=== PATIENT | male | born 1950 | race Two or more races ===

== ENCOUNTER → 2016-06-16 | Outpatient (CLI) | payer OTHER ==
[2015-10-27 08:03] VITALS: BP 128/90
[~2016-06-16] MED LIST: LISI1TAB3 PO; NIFE30TA38 PO; OMEP40CA5 PO; TAMS0.4C97 PO
--- NOTE | 2016-06-16 14:48 | KCIC ---
CHEST, TWO VIEWS, 06/16/2016: History: Cough and congestion The heart size and pulmonary vascularity are normal. No pulmonary infiltrates are seen. There is no evidence of pleural fluid. Moderate spurring is present in the spine. IMPRESSION: No acute cardiopulmonary abnormality is detected. Electronically signed by: Dion Warren MD (Jun 16, 2016 14:46:19)
== END | disposition home or self-care (01) ==
LOC: KCIC 12:30
PROVIDERS: ATTEND Family Medicine
DX: R05 Cough (principal); R09.89 Other specified symptoms and signs involving the circulatory and respiratory systems
CPT/HCPCS: 71020

== ENCOUNTER 2016-06-29 09:07 | Inpatient (IN) | payer OTHER ==
[~2016-06-29] VITALS: Ht 182.9 cm; Wt 114.8 kg
[2016-06-29 07:00] VITALS: BP 127/78
--- NOTE | 2016-06-29 09:17 | PHYS DOC ---
Adult General Chief Complaint Chief Complaint: SHORTNESS OF BREATH HPI HPI Patient is a 65 year old male who presents with was of breath last 2 weeks. He states that this came on when he was fertilizing the yard 2 weeks ago. He was seen by his primary care physician and was given breathing treatments and steroids for bronchitis. He states this did not improve his symptoms either he came back to do a stress test which was inconclusive and was sent to a shipfitter apprentice and hasn't echocardiogram that's pending. He denies any orthopnea, denies any fevers, he is having a non-productive cough and states he has some chest discomfort only with coughing. He denies any abdominal pain. He denies any swelling in his legs. He denies any history of heart disease or tobacco abuse. Review of Systems Review of Systems Constitutional: Denies fever or chills [] Eyes: Denies change in visual acuity, redness, or eye pain [] HENT: Denies nasal congestion or sore throat [] Respiratory: Positive for cough and shortness of breath [] Cardiovascular: No additional information not addressed in HPI [] GI: Denies abdominal pain, nausea, vomiting, bloody stools or diarrhea [] : Denies dysuria or hematuria [] Musculoskeletal: Denies back pain or joint pain [] Integument: Denies rash or skin lesions [] Neurologic: Denies headache, focal weakness or sensory changes [] Endocrine: Denies polyuria or polydipsia [] Current Medications Current Medications Current Medications Medications (Trade) Dose Ordered Sig/Meghana Start Time Stop Time Status Last Admin Dose Admin Albuterol/ Ipratropium 3 ml 3 ml 1X ONCE 06/29/16 10:45 06/29/16 10:46 DC 06/29/16 10:29 3 ML Info (Do NOT chart on this entry -- for MONITORING) 1 each PRN DAILY PRN 06/29/16 11:45 07/01/16 11:44 Iohexol (Omnipaque 300 Mg/ml) 60 ml 1X ONCE 06/29/16 11:45 06/29/16 11:46 DC 06/29/16 11:45 60 ML Sodium Chloride (Iv Sodium Chloride 0.9% 1000ml Bag) 1,000 ml @ 1,000 mls/hr 1X ONCE 06/29/16 11:30 06/29/16 12:29 DC 06/29/16 12:15 1,000 MLS/HR Allergies Allergies Allergies Coded Allergies Type Severity Reaction Last Updated Verified No Known Drug Allergies 10/27/15 No Physical Exam Physical Exam Constitutional: Well developed, well nourished, no acute distress, non-toxic appearance. [] HENT: Normocephalic, atraumatic, bilateral external ears normal, oropharynx moist, no oral exudates, nose normal. [] Eyes: PERRLA, EOMI, conjunctiva normal, no discharge. [] Neck: Normal range of motion, no tenderness, supple, no stridor. [] Cardiovascular:Heart rate regular rhythm,tachy, no murmur [] Lungs & Thorax: Bilateral breath sounds decreased with mild expiratory wheezes Abdomen: Bowel sounds normal, soft, no tenderness, no masses, no pulsatile masses. [] Skin: Warm, dry, no erythema, no rash. [] Back: No tenderness, no CVA tenderness. [] Extremities: No tenderness, no cyanosis, no clubbing, ROM intact, no edema. [] Neurologic: Alert and oriented X 3, normal motor function, normal sensory function, no focal deficits noted. [] Psychologic: Affect normal, judgement normal, mood normal. [] Current Patient Data Vital Signs Vital Signs Date Time Temp Pulse Resp B/P Pulse Ox O2 Delivery O2 Flow Rate FiO2 06/29/16 10:29 94 Room Air 06/29/16 09:25 98.1 112 16 108/65 98.1 Lab Values Laboratory Tests Test 06/29/16 10:05 06/29/16 10:50 White Blood Count 13.4x10^3/uL (4.0-11.0) H Red Blood Count 4.88x10^6/uL (4.30-5.70) Hemoglobin 14.6g/dL (13.0-17.5) Hematocrit 42.1% (39.0-53.0) Mean Corpuscular Volume 86fL (79-100) Mean Corpuscular Hemoglobin 30pg (25-35) Mean Corpuscular Hemoglobin Concent 35g/dL (31-37) Red Cell Distribution Width 13.3% (11.5-14.5) Platelet Count 218x10^3/uL (140-400) Neutrophils (%) (Auto) 75% (31-73) H Lymphocytes (%) (Auto) 15% (24-48) L Monocytes (%) (Auto) 9% (0-9) Eosinophils (%) (Auto) 1% (0-3) Basophils (%) (Auto) 0% (0-3) Neutrophils # (Auto) 10.1x10^3uL (1.8-7.7) H Lymphocytes # (Auto) 2.0x10^3/uL (1.0-4.8) Monocytes # (Auto) 1.1x10^3/uL (0.0-1.1) Eosinophils # (Auto) 0.1x10^3/uL (0.0-0.7) Basophils # (Auto) 0.1x10^3/uL (0.0-0.2) Prothrombin Time 13.5SEC (11.7-14.0) Prothrombin Time INR 1.1 (0.8-1.1) D-Dimer (Anjali) 5.91ug/mlFEU (0.00-0.50) H Sodium Level 138mmol/L (136-145) Potassium Level 3.3mmol/L (3.5-5.1) L Chloride Level 102mmol/L (98-107) Carbon Dioxide Level 25mmol/L (21-32) Anion Gap 11 (6-14) Blood Urea Nitrogen 19mg/dL (8-26) Creatinine 1.4mg/dL (0.7-1.3) H Estimated GFR (Cockcroft-Gault) 50.5 Glucose Level 136mg/dL (70-99) H Calcium Level 8.8mg/dL (8.5-10.1) Magnesium Level 1.9mg/dL (1.8-2.4) Total Bilirubin 1.1mg/dL (0.2-1.0) H Direct Bilirubin 0.2mg/dL (0.0-0.2) Aspartate Amino Transferase (AST) 21U/L (15-37) Alanine Aminotransferase (ALT) 24U/L (16-63) Alkaline Phosphatase 74U/L (46-116) Creatine Kinase 201U/L (39-308) Creatine Kinase MB (Mass) 1.1ng/mL (0.0-3.6) Creatine Kinase MB Relative Index 0.5% (0-4) Troponin I Quantitative < 0.017ng/mL (0.000-0.055) CI-Dzu-D-Type Natriuretic Peptide 361pg/mL (0-124) H Total Protein 7.5g/dL (6.4-8.2) Albumin 3.3g/dL (3.4-5.0) L Thyroid Stimulating Hormone (TSH) 0.827uIU/mL (0.358-3.74) Urine Collection Type Void Urine Color Candy Urine Clarity Clear Urine pH 7.0 Urine Specific [place] 1.020 Urine Protein Negativemg/dL (NEG-TRACE) Urine Glucose (UA) Negativemg/dL (NEG) Urine Ketones (Stick) Negativemg/dL (NEG) Urine Blood Negative (NEG) Urine Nitrite Negative (NEG) Urine Bilirubin Negative (NEG) Urine Urobilinogen Dipstick 1.0mg/dL (0.2 mg/dL) Urine Leukocyte Esterase Trace (NEG) Urine RBC 0/HPF (0-2) Urine WBC 1-4/HPF (0-4) Urine Squamous Epithelial Cells Mod/LPF Urine Bacteria Few/HPF (0-FEW) Urine Mucus Marked/LPF Laboratory Tests 06/29/16 10:05 Laboratory Tests 06/29/16 10:05 EKG EKG EKG shows sinus tach with a rate of [address] elevations or T-wave inversions, normal axis, QTC 467 ms, as interpreted by me. Radiology/Procedures Radiology/Procedures [facility] [address] [place] [address] IMAGING REPORT Signed PATIENT: MARCELO ZARCO ACCOUNT: [id number] : 1950 LOCATION: ER AGE: 65 SEX: M EXAM STATUS: REG ER ORD. PHYSICIAN: LEONARDO PALMA MD REASON: PROCEDURE: PORTABLE CHEST 1V Portable chest, 06/29/2016: History: Cough, shortness of breath Comparison is made to a study from 06/16/2016. The heart size and pulmonary vascularity are normal. There is minimal streaky atelectasis/infiltrate laterally in the left upper chest. The right lung is clear. There is no evidence of pleural fluid. Mild spurring is present in the spine. IMPRESSION: Minimal streaky atelectasis/infiltrate in the left upper chest. DICTATED and SIGNED BY: ABBY CHOWDHURY MD DATE: 06/29/16 1017 CC: LEONARDO PALMA MD; GERSON SORIANO MD ~ Impressions: Bilateral PEs Course & Med Decision Making Course & Med Decision Making Pertinent Labs and Imaging studies reviewed. (See chart for details) HEENT angiogram confirms bilateral PEs. He was started on heparin drip. I did place a consult with Dr. Santiago with pulmonary. I also related Doppler of bilateral lower extremities as if he does have DVTs might need an IVC filter. The patient is in stable condition with stable vitals at this time other than his slight tachycardia at 109. We did leave a message with Dr. Soriano's staff air defense officer that the patient does have bilateral PEs and consulting pulmonary. Critical care time of 55 minutes of critical care time was used on this patient excluding procedures. Dragon Disclaimer Dragon Disclaimer This electronic medical record was generated, in whole or in part, using a voice recognition dictation system. Departure Departure Impression: Primary Impression: Pulmonary embolism Disposition: ADMITTED INPATIENT Admitting Physician: Gerson Soriano Condition: STABLE Referrals: GERSON SORIANO MD (PCP) LEONARDO PALMA MD Jun 29, 2016 09:17
[2016-06-29 10:16] LABS: BASO # 0.1 x10^3/uL (0.0-0.2); BASO % 0 % (0-3); EOS % 1 % (0-3); HEMATOCRIT 42.1 % (39.0-53.0); HEMOGLOBIN 14.6 g/dL (13.0-17.5); LYMPH % 15 % (24-48); MEAN CORPUSCULAR HEMOGLOBIN 30 pg (25-35); MEAN CORPUSCULAR HGB CONC 35 g/dL (31-37); MEAN CORPUSCULAR VOLUME 86 fL (79-100); MONO % 9 % (0-9); NEUT % 75 % (31-73); PLATELET COUNT 218 x10^3/uL (140-400); RED BLOOD COUNT 4.88 x10^6/uL (4.30-5.70); RED CELL DISTRIBUTION WIDTH 13.3 % (11.5-14.5); WHITE BLOOD COUNT 13.4 x10^3/uL (4.0-11.0)
--- NOTE | 2016-06-29 10:22 | RAD ---
Portable chest, 06/29/2016: History: Cough, shortness of breath Comparison is made to a study from 06/16/2016. The heart size and pulmonary vascularity are normal. There is minimal streaky atelectasis/infiltrate laterally in the left upper chest. The right lung is clear. There is no evidence of pleural fluid. Mild spurring is present in the spine. IMPRESSION: Minimal streaky atelectasis/infiltrate in the left upper chest.
--- NOTE | 2016-06-29 10:32 | EKG ---
[facility] [address] [place] [address] Test Date: 2016-06-29 Test Time: 09:31:57 Pat Name: MARCELO ZARCO Department: Room: Gender: M Parent Aide: : 1950 Requested By: LEONARDO PALMA Order Number: [id number] Reading MD: Measurements Intervals [place] Rate: 105 P: 51 RI: 154 QRS: 32 QRSD: 90 T: 34 QT: 350 QTc: 467 Interpretive Statements SINUS TACHYCARDIA QRS(T) CONTOUR ABNORMALITY CONSIDER ANTEROSEPTAL MYOCARDIAL DAMAGE CONSIDER INFERIOR MYOCARDIAL DAMAGE POSSIBLY ABNORMAL ECG RI6.01 No previous ECG available for comparison
[2016-06-29 10:33] LABS: INR 1.1 (0.8-1.1); PROTHROMBIN TIME PATIENT 13.5 SEC (11.7-14.0)
[2016-06-29 10:35] LABS: CALCIUM 8.8 mg/dL (8.5-10.1); CREATININE 1.4 mg/dL (0.7-1.3); GFR 50.5; POTASSIUM 3.3 mmol/L (3.5-5.1)
[2016-06-29 10:41] LABS: ALBUMIN 3.3 g/dL (3.4-5.0); DIRECT BILIRUBIN 0.2 mg/dL (0.0-0.2); MAGNESIUM 1.9 mg/dL (1.8-2.4); TOTAL BILIRUBIN 1.1 mg/dL (0.2-1.0); TOTAL PROTEIN 7.5 g/dL (6.4-8.2)
[2016-06-29] MEDS ORDERED: IPRATRPIUM/ALBUTEROL 0.5/2.5MG 3 ML NEBU. NEB ONE (10:45)
[2016-06-29 10:46] LABS: CKMB INDEX 0.5 % (0-4); CKMB MASS 1.1 ng/mL (0.0-3.6)
[2016-06-29] MEDS ORDERED: IV NORMAL SALINE 1000ML BAG 1,000 ML IV ONE (11:30)
[2016-06-29] MEDS ORDERED: IOHEXOL 300 MG/ML 75 ML VIAL IV ONE (11:45)
[2016-06-29] MEDS ORDERED: CONTRAST GIVEN MC PRN (11:45)
[2016-06-29 11:46] LABS: BILIRUBIN,URINE NEGATIVE (NEG); GLUCOSE,URINE NEGATIVE (NEG); NITRITE,URINE NEGATIVE (NEG); PROTEIN,URINE NEGATIVE (NEG-TRACE)
[2016-06-29 12:05] LABS: BACTERIA,URINE FEW /HPF (0-FEW); RBC,URINE 0 /HPF (0-2); SQUAMOUS EPITHELIAL CELL,UR MOD /LPF
--- NOTE | 2016-06-29 12:19 | RAD ---
CT pulmonary angiogram with contrast History: Shortness of air for 2 weeks. Comparison: None. Technique: Helical CT angiogram of the chest with attention to the pulmonary arteries was performed after the administration of intravenous contrast, 60 mL Omnipaque 300. Axial 2-D reconstructions were obtained. Coronal 3-D MIPS were also obtained. One or more of the following individualized dose reduction techniques were utilized for the study: Automated exposure control Adjustment of mA and/or kV according to patient's size Use of iterative reconstruction technique. Findings: There is adequate opacification of pulmonary arteries. There is a moderate to large burden of bilateral pulmonary embolism. Pulmonary embolism can be seen involving the most distal aspect of the left main pulmonary artery extending into the left upper and lower lobe pulmonary arterial system and subjacent segments. There is pulmonary embolism involving the distal aspect of the right main pulmonary artery extending into all 3 lobar pulmonary arteries and subjacent segments. There is no evidence of reflux of contrast into the IVC or bowing of the interventricular septum to the left. There is a small focus of irregular consolidation involving the posterior right lung base as well as of additional irregular consolidation involving the lateral left upper lobe. These are worrisome for pulmonary infarctions. No pneumothorax or pleural effusion is seen. Visualized thyroid is symmetric. Trachea and mainstem bronchi appear patent. No mediastinal lymphadenopathy is seen. Thoracic aorta is without evidence of dissection. Heart and pericardium are unremarkable. Impression: 1. Moderate to large burden of bilateral pulmonary embolism. No convincing CT evidence of right heart strain. 2. Bilateral areas of irregular consolidation, worrisome for pulmonary infarctions. 3. Results discussed with emergency department staff at 1217 hours.
[2016-06-29] MEDS ORDERED: HEPARIN for IV BOLUS 10,000 UNIT/10 ML VIAL. IV ONE (12:30)
[2016-06-29] MEDS ORDERED: HEPARIN for IV BOLUS 10,000 UNIT/10 ML VIAL. IV PRN ×2 (12:30)
[2016-06-29] MEDS ORDERED: MORPHINE SULFATE 2 MG/ML DISP.SYRIN. IV PRN (12:30)
[2016-06-29] MEDS ORDERED: ONDANSETRON PF 4 MG/2 ML VIAL. IV PRN (12:30)
[2016-06-29] MEDS: HEPARIN 25,000UTS/500ML PREMIX 500 ML IV PRN (12:52)
--- NOTE | 2016-06-29 13:53 | RAD ---
Bilateral lower extremity venous Doppler ultrasound History: Recent diagnosis of pulmonary embolism. Comparison: None. Procedure: Color Doppler, spectral Doppler, and grayscale images are obtained with and without compression in the area of the common femoral vein, superficial femoral vein - femoral vein junction, main femoral vein (superficial femoral vein) and popliteal vein. Veins of the proximal calf are also imaged. Findings: There is normal duplex flow, color flow and compressibility of all visualized vein segments. No evidence of deep venous thrombosis is present. Impression: No evidence of lower extremity deep venous thrombosis.
--- NOTE | 2016-06-29 13:57 | ACF ---
Admission Forms Criteria PULMONARY EMBOLISM Clinical Indications for Admission to Inpatient Care (Place 'X' for any and all applicable criteria): Admission is indicated by ANY ONE of the following 1,2,3,4,5 [ ]I. Onset of hypoxia [ ]II. Hemodynamic instability 5 [X]III. Massive pulmonary embolism (eg, acute embolism causing sustained hypotension, pulselessness, or bradycardia)5 [ ]IV. Need for IV narcotics (eg, to treat dyspnea) [ ]V. Current use of home oxygen therapy [ ]. Active bleeding [ ]VII. Recent surgery [ ]VIII. Active peptic ulcer disease [ ]IX. Documented extensive thrombosis (eg, clot in vena cava or above iliofemoral bifurcation) [ ]X. Embolism while on anticoagulation [ ]XI. 6 [ ]XII. Appropriate monitoring and therapy cannot be provided in home or outpatient setting. [ ]XIII. Systemic or catheter-directed thrombolysis 5,7 [ ]XIV. Catheter embolectomy and fragmentation 6 [ ]XV. Vena cava filter placement5 [ ]XVI. Severely diminished cardiopulmonary reserve (eg, cor pulmonale, pulmonary hypertension) [ ]XVII. Severe renal failure (eg, GFR less than 30 mL/min/1.73m2 (0.5 mL/sec/ 1.73m2)) [ ]XVIII.Right ventricular dysfunction (eg, by echocardiogram) 6,11 [ ]XIX. Positive cardiac biomarker (eg, troponin T or I > 0.1 ng/mL (mcg/L), highly sensitive troponin I assay greater than 0.014 ng/mL (mcg/L), BNP or NT proBNP > assay threshold)5,8,9 [ ]XX. Known clotting abn or def (eg, liver disease, antithrombin III, protein C, or protein S abnormality) [ ]XXI. History of heparin-induced thrombocytopenia [ ]XXII. Inpatient admission required rather than observation care (Also use Pulmonary Embolism: Observation Care guideline as appropriate) because of ANY ONE of the following: [ ] a) Significant autoimmune (thrombocytopenia) or coagulopathic reaction occurs in response to anticoagulation [ ] b) Respiratory symptoms (eg, tachypnea, dyspnea) that are severe or persistent [ ] c) Other condition, treatment, or monitoring requiring inpatient admission Extended stay beyond goal length of stay may be needed for 3,28 [ ]a) Hemorrhage or recent surgery [ ]b) Recurrent thromboembolism [ ]c) Persistent hypoxemia [ ]d) Heparin-induced thrombocytopenia The original [facility] content created by [facility] has been revised. The portions of the content which have been revised are identified through the use of italic text or in bold, and [facility] has neither reviewed nor approved the modified material. All other unmodified content is copyright [facility]. Please see references footnoted in the original [facility] edition 2016 Admission Criteria Met?: Yes LULA MURCIA Jun 29, 2016 13:57
[2016-06-29 14:49] VITALS: BP 127/81
--- NOTE | 2016-06-29 14:55 | PDOC ---
Provider Note Provider Note dictated Acute bilateral PE, no DVT Hemodynamically stable check echo AC ct abdomen/pelvis IVAN YEH MD Jun 29, 2016 14:55
[2016-06-29] MEDS ORDERED: METO25TA4 PO (15:21)
[2016-06-29] MEDS ORDERED: ASPI81TA2 PO (15:22)
[2016-06-29] MEDS ORDERED: MAGN400T3 PO (15:23)
[2016-06-29] MEDS ORDERED: MULT-658 PO (15:23)
[2016-06-29] MEDS ORDERED: OMEP40CA5 PO (15:24)
[2016-06-29] MEDS ORDERED: LISI1TAB5 PO (15:24)
[2016-06-29] MEDS ORDERED: DOCU100C5 PO (15:25)
[2016-06-29] MEDS ORDERED: NIFE60TA10 PO (15:25)
--- NOTE | 2016-06-29 15:46 | CONS ---
DATE OF CONSULTATION: 06/29/2016 ATTENDING PHYSICIAN: Dr. Joaquin Pardo. REASON FOR CONSULTATION: Dyspnea and acute pulmonary embolism. HISTORY OF PRESENT ILLNESS: The patient is a pleasant 65-year-old obese male who has history of arthritis and has a sedentary lifestyle due to his knee pain. He said he did receive a corticosteroid injection which did not help and then he received Monovisc shots into his knees, which made him feel better; however, in the two weeks, he started to have shortness of breath. He states that the dyspnea became progressive. He saw his primary care physician who treated him for bronchitis as he was having cough as well. His symptoms did not improve. As a result, he was sent to Dr. Hawkins, who is a safety spec and he did a stress test which was inconclusive. The patient was going to have a chemical stress test, but this morning, his shortness of breath became progressive. He was also having chest pressure. His cough has been persistent. No leg swelling. No recent trauma. No recent surgeries. No history of prior thromboembolic disease. He was seen in the Emergency Room where a CT angiogram was performed and I personally reviewed the CT chest. There are bilateral extensive pulmonary embolism involving the distal right and left main stem bronchus and going all the way to the lobar branches. There is evidence of pulmonary infarction in the left upper lobe and also minimally in the right lung as well. There is no evidence of any right heart strain. The patient also underwent venous Dopplers of the lower extremities and they were negative. He was started on heparin protocol and I have been asked to see him for further evaluation. PAST MEDICAL HISTORY: Significant for history of arthritis. History of obesity. No significant history of thromboembolic disease. PAST SURGICAL HISTORY: No recent surgery. ALLERGIES: None. CURRENT MEDICATIONS: Reviewed as listed in the MRAD including heparin and warfarin. REVIEW OF SYSTEMS: Twelve-point system obtained. Pertinent positives discussed in history of present illness, otherwise noncontributory. All systems that were negative were reviewed as well. FAMILY HISTORY: Noncontributory for any thromboembolic disease. PHYSICAL EXAMINATION: VITAL SIGNS: Blood pressure has been in the one-teens to 130s. Pulse ox is 92% on room air. He is afebrile. His pulse is 100. HEENT: Sclerae nonicteric. NECK: Supple. LUNGS: With clear breath sounds. CARDIOVASCULAR: Regular rate and rhythm. ABDOMEN: Soft, obese. EXTREMITIES: With no pitting edema, no calf tenderness. LABORATORY DATA: Reviewed. White cell count 13.4, hemoglobin 14.6 and platelets are 218. BUN is 19, creatinine 1.4. Albumin 3.3. IMPRESSION: 1. Acute bilateral pulmonary embolism involving the distal main pulmonary trunk and also the lobar branches. The etiology and risk factors include underlying obesity and also immobility due to bilateral knee arthritis. He does not have any family history of thromboembolic disease and also does not have any known malignancies. His colonoscopy within the past 5 years was negative. He does have a recent 10-pound weight loss. At this point, I would also rule out any occult malignancy by doing a CT abdomen and pelvis. 2. No hemodynamic instability. CT chest without any RV strain. 3. No significant history of tobacco use. 4. Evidence of pulmonary infarction by CT chest. 5. Acute viral bronchitis. RECOMMENDATIONS: 1. I will continue with present heparin protocol and warfarin has been initiated. 2. His will check with the insurance company to see if Eliquis or Xarelto will be approved. 3. Obtain echocardiogram to assess for pulmonary artery pressures. 4. We will need a minimum of 3 months of anticoagulation. 5. We will also do hypercoagulable workup. 6. We will do CT abdomen and pelvis to rule out any occult GI malignancy. 7. Add steroid nebulizer for improving his cough and to reduce airway inflammation. 8. Discussed with the patient's . Discussed with ER physician. IVAN YEH MD DR: AVANI/leah JOB#: [id number] / [id number]
[2016-06-29] MEDS ORDERED: WARFARIN 7.5 MG TABLET. PO ONE (16:00)
--- NOTE | 2016-06-29 16:34 | RAD ---
CT abdomen and pelvis without contrast History: Evaluate for occult malignancy, pulmonary embolism. Comparison: None. Technique: Helical CT of the abdomen and pelvis was performed without intravenous or oral contrast. Axial, sagittal, and coronal reconstructions were obtained. One or more of the following individualized dose reduction techniques were utilized for the study: Automated exposure control Adjustment of mA and/or kV according to patient's size Use of iterative reconstruction technique. Findings: Evaluation of the solid organs is limited by lack of intravenous contrast. Evaluation of enteric structures may be limited by lack of oral contrast. There is excreted intravenous contrast within the renal collecting system and urinary bladder from recent CT angiogram the chest. Mild fatty liver disease is seen. Spleen, pancreas, gallbladder, and bilateral adrenal glands are unremarkable. There is no evidence of bowel obstruction. No free air or free fluid is identified in the abdomen or pelvis. Appendix is absent. Urinary bladder is unremarkable. Bilateral renal cysts are seen with largest involving the inferior pole of the left kidney measuring 6.1 cm. Prostate is moderately enlarged. No abdominal or pelvic lymphadenopathy is seen. No suspicious osseous lesions are seen. Impression: 1. Limited examination secondary to lack of oral and intravenous contrast. 2. No acute abnormality identified in the abdomen or pelvis. No site of primary or metastatic disease identified.
--- NOTE | 2016-06-29 18:26 | PDOC ---
Provider Note Provider Note dictated. will use GERSON Farnsworth MD Jun 29, 2016 18:26
[2016-06-29] MEDS ORDERED: HYDROCODONE/APAP 5/325MG TABLET. PO PRN (18:30)
[2016-06-29 19:00] VITALS: BP 127/78
[2016-06-29] MEDS: TAMSULOSIN 0.4 MG CAP.ER.24H. PO SCH (19:00)
--- NOTE | 2016-06-29 22:33 | HP ---
ADMIT DATE: 06/29/2016 CHIEF COMPLAINT: Shortness of breath. HISTORY OF PRESENT ILLNESS: A 65-year-old white male who over the last 2-1/2 weeks has had increasing shortness breath and some chest discomfort mostly exertional but not really painful. He had an exercise stress test, which was within normal limits, although submaximal, has seen Dr. Mckeon, and a Lexiscan was scheduled and an echo, but he has not done that yet. He became more short of breath. On the day of admission, he came to the ER where a D-dimer was high. Chest x-ray was clear. CT scan showed bilateral pulmonary emboli without right ventricular strain. He was placed on heparin and has had some dry cough. It has been a little better at this time. He recalls no swelling in his legs. No recent car travel or plane travel, fever, chills, hemoptysis or other complaints. MEDICATIONS: Listed per the chart for hypertension. SOCIAL HISTORY: Nonsmoker, nondrinker, he is employed. He is physically active. He is . FAMILY HISTORY: Unremarkable. No hypercoagulable disorders. REVIEW OF SYSTEMS: No other complaints. He has never had any kind of blood clots in the past. OBJECTIVE: ENT: All within normal limits. NECK: No masses, nodes, or bruits. LUNGS: Clear with decreased breath sounds. CARDIOVASCULAR: Regular rate, rate is 100. No murmur or rub is heard. ABDOMEN: Benign, soft and nontender. EXTREMITIES: No active joint or skin lesions. Distal pulses good. No edema. NEUROLOGIC: Physiologic. ASSESSMENT: Bilateral pulmonary emboli. Etiology unclear at this time. No history of hypercoagulable disorder. PLAN: IV heparin for now. We will use Xarelto, insurance covered. GERSON SORIANO MD DR: REFUGIO/leah JOB#: [id number] / [id number]
[2016-06-29 23:00] VITALS: BP 125/85
[2016-06-30 03:00] VITALS: BP 125/85
[2016-06-30] MEDS: HEPARIN 25,000UTS/500ML PREMIX 500 ML IV PRN (03:05)
[2016-06-30 03:32] LABS: CALCIUM 8.5 mg/dL (8.5-10.1); GFR 74.5; POTASSIUM 3.2 mmol/L (3.5-5.1)
[2016-06-30 03:48] LABS: BASO # 0.1 x10^3/uL (0.0-0.2); BASO % 1 % (0-3); EOS % 1 % (0-3); HEMATOCRIT 39.6 % (39.0-53.0); HEMOGLOBIN 13.5 g/dL (13.0-17.5); LYMPH # 2.1 x10^3/uL (1.0-4.8); LYMPH % 24 % (24-48); MEAN CORPUSCULAR HEMOGLOBIN 30 pg (25-35); MEAN CORPUSCULAR HGB CONC 34 g/dL (31-37); MEAN CORPUSCULAR VOLUME 88 fL (79-100); MONO % 8 % (0-9); NEUT % 66 % (31-73); PLATELET COUNT 192 x10^3/uL (140-400); WHITE BLOOD COUNT 8.8 x10^3/uL (4.0-11.0)
[2016-06-30 03:59] LABS: INR 1.2 (0.8-1.1); PROTHROMBIN TIME PATIENT 14.6 SEC (11.7-14.0)
[2016-06-30 07:12] VITALS: BP 103/66
[2016-06-30] MEDS ORDERED: PANTOPRAZOLE 40 MG TABLET.DR. PO SCH ×2 (07:30→11:30)
[2016-06-30] MEDS: TAMSULOSIN 0.4 MG CAP.ER.24H. PO SCH (08:27)
[2016-06-30] MEDS ORDERED: POTASSIUM CHLORIDE 20 MEQ TABLET.ER. PO ONE (08:30)
[2016-06-30] MEDS ORDERED: RIVAROXABAN 15 MG TABLET. PO SCH ×2 (08:30→17:00)
--- NOTE | 2016-06-30 08:36 | PDOC ---
Provider Note Provider Note [id number] GERSON SORIANO MD Jun 30, 2016 08:36
--- NOTE | 2016-06-30 08:38 | DISCH ---
DISCHARGE INSTRUCTIONS Condition on Discharge Condition on Discharge: Stable Activity After Discharge Activity Instructions for Disc: No restrictions Diet after Discharge Diet after Discharge: Low Sodium 4 gm Follow-Up Follow up with: GERSON Alvarez MD Jun 30, 2016 08:38
[2016-06-30] MEDS ORDERED: NIFEDIPINE ER 30 MG TAB.ER.24H PO SCH (09:00)
[2016-06-30] MEDS ORDERED: DOCUSATE SODIUM 100 MG CAPSULE. PO SCH (09:00)
[2016-06-30] MEDS ORDERED: HYDROCHLOROTHIAZIDE 12.5 MG CAPSULE. PO SCH (09:00)
[2016-06-30] MEDS ORDERED: LISINOPRIL 20 MG TABLET PO SCH (09:00)
--- NOTE | 2016-06-30 09:32 | DS ---
DATE OF DISCHARGE: 06/30/2016 HOSPITAL SUMMARY: A 65-year-old white male who came in with increasing shortness of breath over the last 2 weeks, nonproductive cough and some dyspnea with exertion. CBC showed an initial mildly elevated white cell count that came down to normal. Chemistry profile showed a potassium of 3.2, otherwise unremarkable with normal CPK, troponin, BNP and TSH. The Anti-Xa levels while on heparin were therapeutic. Urinalysis was clear. Chest x-ray was clear with CTA of the chest showing [id number] burden of bilateral pulmonary emboli with no sign of heart strain and some mild evidence of pulmonary infarction. Ultrasound of the both lower extremities showed no evidence of DVT and the noncontrast CT scan of the abdomen and pelvis showed bilateral renal cysts, but no pathology burden or abnormalities. He was treated with IV heparin and then switched to oral Xarelto and was seen by consultation with Dr. Santiago. Echocardiogram has been ordered, but the results are pending at this time. He has less dyspnea and is more comfortable at this point, and will be switched to Xarelto and followed as an outpatient. FINAL DIAGNOSES: 1. Bilateral pulmonary emboli. 2. Hypokalemia secondary to diuretic use. OPERATIONS, PROCEDURES, COMPLICATIONS: None. CONSULTATIONS: Dr. Santiago. DISPOSITION: Hypercoagulability labs are pending at this time. Xarelto 15 mg twice a day for 3 weeks, then 20 mg daily after that for 3-6 months. Continue all home blood pressure meds same, dietary potassium supplementation. Office followup with Dr. Santiago in 1-[address] Pardo in 1 month and he will use hydrocodone needed for cough. Activity as tolerated. Low-sodium diet. GERSON PARDO MD DR: REFUGIO/leah JOB#: [id number] / [id number]
--- NOTE | 2016-06-30 09:55 | PDOC ---
PULMONARY PROGRESS NOTES Subjective FEELS BETTER STILL HAS DRY COUGH Vitals Vital Signs Date Time Temp Pulse Resp B/P Pulse Ox O2 Delivery O2 Flow Rate FiO2 06/30/16 08:28 98 103/66 06/30/16 07:12 98.2 20 96 Room Air 98.2 General: Alert, No acute distress Lungs: Clear Cardiovascular: S1 Abdomen: Soft Neuro Exam: Alert Extremities: No Edema Skin: Warm Labs Laboratory Tests Test 06/29/16 10:05 06/29/16 10:50 06/29/16 19:30 06/30/16 03:00 White Blood Count 13.4x10^3/uL (4.0-11.0) 8.8x10^3/uL (4.0-11.0) Red Blood Count 4.88x10^6/uL (4.30-5.70) 4.50x10^6/uL (4.30-5.70) Hemoglobin 14.6g/dL (13.0-17.5) 13.5g/dL (13.0-17.5) Hematocrit 42.1% (39.0-53.0) 39.6% (39.0-53.0) Mean Corpuscular Volume 86fL (79-100) 88fL (79-100) Mean Corpuscular Hemoglobin 30pg (25-35) 30pg (25-35) Mean Corpuscular Hemoglobin Concent 35g/dL (31-37) 34g/dL (31-37) Red Cell Distribution Width 13.3% (11.5-14.5) 13.0% (11.5-14.5) Platelet Count 218x10^3/uL (140-400) 192x10^3/uL (140-400) Neutrophils (%) (Auto) 75% (31-73) 66% (31-73) Lymphocytes (%) (Auto) 15% (24-48) 24% (24-48) Monocytes (%) (Auto) 9% (0-9) 8% (0-9) Eosinophils (%) (Auto) 1% (0-3) 1% (0-3) Basophils (%) (Auto) 0% (0-3) 1% (0-3) Neutrophils # (Auto) 10.1x10^3uL (1.8-7.7) 5.8x10^3uL (1.8-7.7) Lymphocytes # (Auto) 2.0x10^3/uL (1.0-4.8) 2.1x10^3/uL (1.0-4.8) Monocytes # (Auto) 1.1x10^3/uL (0.0-1.1) 0.7x10^3/uL (0.0-1.1) Eosinophils # (Auto) 0.1x10^3/uL (0.0-0.7) 0.1x10^3/uL (0.0-0.7) Basophils # (Auto) 0.1x10^3/uL (0.0-0.2) 0.1x10^3/uL (0.0-0.2) Prothrombin Time 13.5SEC (11.7-14.0) 14.6SEC (11.7-14.0) Prothromb Time International Ratio 1.1 (0.8-1.1) 1.2 (0.8-1.1) D-Dimer (Anjali) 5.91ug/mlFEU (0.00-0.50) Sodium Level 138mmol/L (136-145) 139mmol/L (136-145) Potassium Level 3.3mmol/L (3.5-5.1) 3.2mmol/L (3.5-5.1) Chloride Level 102mmol/L (98-107) 105mmol/L (98-107) Carbon Dioxide Level 25mmol/L (21-32) 27mmol/L (21-32) Anion Gap 11 (6-14) 7 (6-14) Blood Urea Nitrogen 19mg/dL (8-26) 14mg/dL (8-26) Creatinine 1.4mg/dL (0.7-1.3) 1.0mg/dL (0.7-1.3) Estimated GFR (Cockcroft-Gault) 50.5 74.5 Glucose Level 136mg/dL (70-99) 122mg/dL (70-99) Calcium Level 8.8mg/dL (8.5-10.1) 8.5mg/dL (8.5-10.1) Magnesium Level 1.9mg/dL (1.8-2.4) Total Bilirubin 1.1mg/dL (0.2-1.0) Direct Bilirubin 0.2mg/dL (0.0-0.2) Aspartate Amino Transf (AST/SGOT) 21U/L (15-37) Alanine Aminotransferase (ALT/SGPT) 24U/L (16-63) Alkaline Phosphatase 74U/L (46-116) Creatine Kinase 201U/L (39-308) Creatine Kinase MB (Mass) 1.1ng/mL (0.0-3.6) Creatine Kinase MB Relative Index 0.5% (0-4) Troponin I Quantitative < 0.017ng/mL (0.000-0.055) PW-Scv-V-Type Natriuretic Peptide 361pg/mL (0-124) Total Protein 7.5g/dL (6.4-8.2) Albumin 3.3g/dL (3.4-5.0) Thyroid Stimulating Hormone (TSH) 0.827uIU/mL (0.358-3.74) Urine Collection Type Void Urine Color Candy Urine Clarity Clear Urine pH 7.0 Urine Specific [place] 1.020 Urine Protein Negativemg/dL (NEG-TRACE) Urine Glucose (UA) Negativemg/dL (NEG) Urine Ketones (Stick) Negativemg/dL (NEG) Urine Blood Negative (NEG) Urine Nitrite Negative (NEG) Urine Bilirubin Negative (NEG) Urine Urobilinogen Dipstick 1.0mg/dL (0.2 mg/dL) Urine Leukocyte Esterase Trace (NEG) Urine RBC 0/HPF (0-2) Urine WBC 1-4/HPF (0-4) Urine Squamous Epithelial Cells Mod/LPF Urine Bacteria Few/HPF (0-FEW) Urine Mucus Marked/LPF Heparin Anti-Xa Act, Unfractionated 0.71IU/mL (0.30-0.70) 0.52IU/mL (0.30-0.70) Laboratory Tests Test 06/29/16 10:05 06/29/16 10:50 06/29/16 19:30 06/30/16 03:00 White Blood Count 13.4x10^3/uL (4.0-11.0) 8.8x10^3/uL (4.0-11.0) Red Blood Count 4.88x10^6/uL (4.30-5.70) 4.50x10^6/uL (4.30-5.70) Hemoglobin 14.6g/dL (13.0-17.5) 13.5g/dL (13.0-17.5) Hematocrit 42.1% (39.0-53.0) 39.6% (39.0-53.0) Mean Corpuscular Volume 86fL (79-100) 88fL (79-100) Mean Corpuscular Hemoglobin 30pg (25-35) 30pg (25-35) Mean Corpuscular Hemoglobin Concent 35g/dL (31-37) 34g/dL (31-37) Red Cell Distribution Width 13.3% (11.5-14.5) 13.0% (11.5-14.5) Platelet Count 218x10^3/uL (140-400) 192x10^3/uL (140-400) Neutrophils (%) (Auto) 75% (31-73) 66% (31-73) Lymphocytes (%) (Auto) 15% (24-48) 24% (24-48) Monocytes (%) (Auto) 9% (0-9) 8% (0-9) Eosinophils (%) (Auto) 1% (0-3) 1% (0-3) Basophils (%) (Auto) 0% (0-3) 1% (0-3) Neutrophils # (Auto) 10.1x10^3uL (1.8-7.7) 5.8x10^3uL (1.8-7.7) Lymphocytes # (Auto) 2.0x10^3/uL (1.0-4.8) 2.1x10^3/uL (1.0-4.8) Monocytes # (Auto) 1.1x10^3/uL (0.0-1.1) 0.7x10^3/uL (0.0-1.1) Eosinophils # (Auto) 0.1x10^3/uL (0.0-0.7) 0.1x10^3/uL (0.0-0.7) Basophils # (Auto) 0.1x10^3/uL (0.0-0.2) 0.1x10^3/uL (0.0-0.2) Prothrombin Time 13.5SEC (11.7-14.0) 14.6SEC (11.7-14.0) Prothromb Time International Ratio 1.1 (0.8-1.1) 1.2 (0.8-1.1) D-Dimer (Anjali) 5.91ug/mlFEU (0.00-0.50) Sodium Level 138mmol/L (136-145) 139mmol/L (136-145) Potassium Level 3.3mmol/L (3.5-5.1) 3.2mmol/L (3.5-5.1) Chloride Level 102mmol/L (98-107) 105mmol/L (98-107) Carbon Dioxide Level 25mmol/L (21-32) 27mmol/L (21-32) Anion Gap 11 (6-14) 7 (6-14) Blood Urea Nitrogen 19mg/dL (8-26) 14mg/dL (8-26) Creatinine 1.4mg/dL (0.7-1.3) 1.0mg/dL (0.7-1.3) Estimated GFR (Cockcroft-Gault) 50.5 74.5 Glucose Level 136mg/dL (70-99) 122mg/dL (70-99) Calcium Level 8.8mg/dL (8.5-10.1) 8.5mg/dL (8.5-10.1) Magnesium Level 1.9mg/dL (1.8-2.4) Total Bilirubin 1.1mg/dL (0.2-1.0) Direct Bilirubin 0.2mg/dL (0.0-0.2) Aspartate Amino Transf (AST/SGOT) 21U/L (15-37) Alanine Aminotransferase (ALT/SGPT) 24U/L (16-63) Alkaline Phosphatase 74U/L (46-116) Creatine Kinase 201U/L (39-308) Creatine Kinase MB (Mass) 1.1ng/mL (0.0-3.6) Creatine Kinase MB Relative Index 0.5% (0-4) Troponin I Quantitative < 0.017ng/mL (0.000-0.055) XH-Sxq-X-Type Natriuretic Peptide 361pg/mL (0-124) Total Protein 7.5g/dL (6.4-8.2) Albumin 3.3g/dL (3.4-5.0) Thyroid Stimulating Hormone (TSH) 0.827uIU/mL (0.358-3.74) Urine Collection Type Void Urine Color Candy Urine Clarity Clear Urine pH 7.0 Urine Specific [place] 1.020 Urine Protein Negativemg/dL (NEG-TRACE) Urine Glucose (UA) Negativemg/dL (NEG) Urine Ketones (Stick) Negativemg/dL (NEG) Urine Blood Negative (NEG) Urine Nitrite Negative (NEG) Urine Bilirubin Negative (NEG) Urine Urobilinogen Dipstick 1.0mg/dL (0.2 mg/dL) Urine Leukocyte Esterase Trace (NEG) Urine RBC 0/HPF (0-2) Urine WBC 1-4/HPF (0-4) Urine Squamous Epithelial Cells Mod/LPF Urine Bacteria Few/HPF (0-FEW) Urine Mucus Marked/LPF Heparin Anti-Xa Act, Unfractionated 0.71IU/mL (0.30-0.70) 0.52IU/mL (0.30-0.70) Medications Active Scripts Medications Dose Route/Sig Days Date Category Docusate Sodium 100 Mg Capsule 1 Cap PO DAILY 06/29/16 Reported Nifedipine Er (Nifedipine) 60 Mg Tablet.er 1 Tab PO DAILY 06/29/16 Reported Lisinopril-Hctz 20-12.5 Mg Tab (Lisinopril/Hydrochlorothiazide) 1 Each Tablet 1 Tab PO DAILY 06/29/16 Reported Omeprazole 40 Mg Capsule.dr 40 Mg PO BID 06/29/16 Reported Centrum Silver Tablet (Multivits-Min/Fa/Lycopene/Lut) 1 Each Tablet 1 Each PO 06/29/16 Reported Magnesium Oxide 400 Mg Tablet 1 Tab PO DAILY 06/29/16 Reported Aspirin 81 Mg Tab.chew 1 Tab PO DAILY 06/29/16 Reported Metoprolol Tartrate 25 Mg Tablet 1 Tab PO BID 06/29/16 Reported Flomax (Tamsulosin Hcl) 0.4 Mg Cap.er.24h 1 Cap PO DAILY 10/27/15 Reported Impression . 1. Acute bilateral pulmonary embolism involving the distal main pulmonary trunk and also the lobar branches. The etiology and risk factors include underlying obesity and also immobility due to bilateral knee arthritis. He does not have any family history of thromboembolic disease and also does not have any known malignancies. His colonoscopy within the past 5 years was negative. He does have a recent 10-pound weight loss. No occult malignancy by CT abdomen and pelvis. 2. No hemodynamic instability. CT chest without any RV strain. 3. No significant history of tobacco use. 4. Evidence of pulmonary infarction by CT chest. 5. Acute viral bronchitis. 6. Highly suspected NICOLETTE(witness apneas by spouse) Plan . 1. d/c heparin. Place on Xarelto 2. f/u ct chest /PE protocol a sop IN 4-6 WEEKS 3. Obtain echocardiogram to assess for pulmonary artery pressures. 4. We will need a minimum of 3 months of anticoagulation. 5. We will also do hypercoagulable workup. 6. Negative CT abdomen and pelvis for any occult GI malignancy. 7. Add steroid inhaler flovent for cough 8. Sleep study as OP 8. Discussed with the patient's . ok to d/c home. F/u with me on august 16 at 11.30 am with CTA chest and Sleep study prior to visit IVAN YEH MD Jun 30, 2016 09:55
[2016-06-30 10:51] VITALS: BP 112/77
[2016-06-30 11:24] LABS: HOMOCYSTINE LEVEL 9.3 umol/L (0.0-15.0)
[2016-06-30] MEDS ORDERED: HYDR-971 PO (11:58)
[2016-06-30] MEDS ORDERED: RIVA15TA PO (11:59)
[2016-06-30] MEDS ORDERED: RIVA20TA2 PO (11:59)
--- NOTE | 2016-06-30 20:52 | CARD ---
APPROVED REPORT EXAM: Two-dimensional and M-mode echocardiogram with Doppler and color Doppler. Other Information Quality : Good INDICATION Pulmonary Embolism 2D DIMENSIONS RVDd2.5 (2.9-3.5cm)Left Atrium(2D)3.2 (1.6-4.0cm) IVSd1.1 (0.7-1.1cm)Aortic Root(2D)3.7 (2.0-3.7cm) LVDd4.2 (3.9-5.9cm)LVOT Diameter2.2 (1.8-2.4cm) PWd1.0 (0.7-1.1cm)LVDs2.5 (2.5-4.0cm) FS (%) 30.0 %SV57.0 ml LVEF(%)60.0 (>50%) Aortic Valve AoV Peak Tonny.112.4cm/sAoV VTI16.7cm AO Peak GR.5.1mmHgLVOT Peak Tonny.92.1cm/s LVOT VTI 13.55cmAO Mean GR.3mmHg LEON (VMAX)3.08oc5LAQ (VTI)2.96cm2 Mitral Valve MV E Sktfxjvz51.7cm/sMV DECEL [id number] MV A Ydywiroz34.5cm/sMV [id number] E/A Ratio0.9MVA (PHT)2.92cm2 TDI E/Lateral E'4.6E/Medial E'7.8 Tricuspid Valve TR P. Ihldauxq143ot/sRAP [id number] TR Peak Gr.17mxTpVIDQ88rkHp Pulmonary Vein S1 Wyrffpch55.6cm/sD2 Koetuedx96.7cm/s LEFT VENTRICLE The left ventricle is normal size. There is normal left ventricular wall thickness. Left ventricle sy stolic function is low normal. The Ejection Fraction is 50-55%. There is normal LV segmental wall mot ion. . RIGHT VENTRICLE The right ventricle is mild to moderately dilated. Systolic function is mildly reduced. ATRIA The left atrium size is normal. The right atrium size is normal. The interatrial septum is intact wit h no evidence for an atrial septal defect or patent foramen ovale as noted on 2-D or Doppler imaging. AORTIC VALVE The aortic valve is calcified but opens well. Doppler and Color Flow revealed trace to mild aortic re gurgitation. There is no significant aortic valvular stenosis. MITRAL VALVE The mitral valve is normal in structure and function. There is no evidence of mitral valve prolapse. There is no mitral valve stenosis. Doppler and Color Flow revealed no mitral valve regurgitation note d. TRICUSPID VALVE The tricuspid valve is normal in structure and function. Doppler and Color Flow revealed trace tricus pid regurgitation. There is moderate pulmonary hypertension. The PA pressure was estimated at 50 mmHg . There is no tricuspid valve stenosis. PULMONIC VALVE The pulmonary valve is normal in structure and function. Doppler and Color Flow revealed mild pulmoni c valvular regurgitation. There is no pulmonic valvular stenosis. GREAT VESSELS The aortic root is normal in size. The ascending aorta is not well seen. The IVC is normal in size an d collapses <50% with inspiration. PERICARDIAL EFFUSION There is no evidence of significant pericardial effusion. Critical Notification Critical Value: No <Conclusion> The left ventricle is normal size. There is normal left ventricular wall thickness. Left ventricle systolic function is low normal. The Ejection Fraction is 50-55%. The diastolic function is normal TThe left atrium is of a normal size There is no mitral valve stenosis or regurgitation There is no aortic valvular stenosis and a trace aortic regurgitation Doppler and Color Flow revealed trace tricuspid regurgitation. There is moderate pulmonary hypertension. The PA pressure was estimated at 50 mmHg. Doppler and Color Flow revealed mild pulmonic valvular regurgitation.
== END 2016-06-30 14:27 | disposition home or self-care (01) | DRG 176 ==
LOC: ER 09:07 → 6 SOUTH 12:10
PROVIDERS: ADMIT Family Medicine; ATTEND Family Medicine
DX: I26.99 Other pulmonary embolism without acute cor pulmonale (principal); T50.2X5A Adverse effect of carbonic-anhydrase inhibitors, benzothiadiazides and other diuretics, initial encounter; E66.9 Obesity, unspecified; M19.90 Unspecified osteoarthritis, unspecified site; E87.6 Hypokalemia; J20.8 Acute bronchitis due to other specified organisms; Z68.34 Body mass index [BMI] 34.0-34.9, adult
CPT/HCPCS: 36415; 71010; 71275; 74176; 80048; 80076; 81001; 82553; 83090; 83735; 83880; 84443; 84484; 85027; 85379; 85520; 85610; 86147; 87086; 93005; 93306; 93970; 94250; 94640; 96374; G0379; J7030; J7620; Q9967; 99291-25

== ENCOUNTER → 2016-08-02 | Outpatient (CLI) | payer OTHER ==
[~2016-08-02] MED LIST changes: +ASPI81TA2 PO; +DOCU100C5 PO; +HYDR-971 PO; +LISI1TAB5 PO; +MAGN400T3 PO; +METO25TA4 PO; +MULT-658 PO; +NIFE60TA10 PO; +RIVA15TA PO; +RIVA20TA2 PO
--- NOTE | 2016-08-03 13:40 | SLEEP ---
DATE OF STUDY: 08/02/2016 ATTENDING PHYSICIAN: Dr. Joaquin Pardo. The patient is a 65-year-old who weighs 258 pounds with a BMI of 35. The patient's Felton score was 5. Sleep study was performed at [facility]. This was a split night study. During the night study, the patient spent 421 minutes in bed and slept for 334 minutes with a sleep efficiency of 79%. Sleep latency was 31 minutes with a REM latency of 125 minutes. Overall, sleep architecture showed increased stage I and stage II sleep, normal slow wave, and normal REM sleep. During the initial diagnostic portion of the study, the patient slept for 147 minutes. During this time, there were 36 obstructive apneas, 75 mixed apneas, no central apneas, and 18 hypopneas. The patient's apnea hypopnea index was 53 per hour, supine index 34 per hour, and REM index of 71 per hour. Review of nocturnal oximetry study during the diagnostic portion revealed a mean oxygen saturation of 93% with the lowest of 79%. A 46% of time oxygen saturation remained between 80% and 89%. EKG monitoring revealed normal sinus rhythm. No sustained arrhythmias were observed. Average heart rate was 81 beats per minute. PLMS were seen at index of 9 per hour and none caused EEG arousals. The patient met the criteria for CPAP initiation. It was started at 5 cm of water and titrated up to 18 cm of water. However, due to persistent respiratory events, the patient was switched to BiPAP starting at 20/12. At this pressure, the patient had 45 minutes of sleep. Supine as well as REM sleep was observed. AHI was reduced to only 4 per hour. Oxygen saturations did stay above 88%, most of the time with few desaturations in the low 80s. I would recommend repeating a nocturnal oximetry study as an outpatient at the final pressure. The patient used a large size full-face mask. IMPRESSION: 1. Severe sleep apnea-hypopnea syndrome with an apnea-hypopnea index of 53 per hour. 2. Nocturnal hypoxia secondary to obstructive sleep apnea, significantly improved with BiPAP. 3. Mild periodic limb movements during sleep without any significant EEG arousals. This does not need to be treated. RECOMMENDATIONS: 1. BiPAP at 20/12 completely eliminated the patient's sleep apnea and should be used on a nightly basis. 2. I would recommend repeating a nocturnal oximetry study as an outpatient at the final pressure to assess the need for supplemental oxygen. 3. Follow up in 4-6 weeks to assess compliance with BiPAP and to document clinical improvement. 4. Weight loss is strongly advised. 5. Avoid [employer] depressants. 6. Caution regarding driving until symptoms of sleep apnea resolve with the use of BiPAP. IVAN YEH MD DR: AVANI/leah JOB#: [id number] / [id number] Dr. Joaquin Holly
== END | disposition home or self-care (01) ==
LOC: RT 18:27
PROVIDERS: ATTEND Internal Medicine Critical Care Medicine
DX: G47.33 Obstructive sleep apnea (adult) (pediatric) (principal)
CPT/HCPCS: 95810

== ENCOUNTER 2016-08-11 22:13 | Emergency (ER) | payer OTHER ==
[~2016-08-11 22:13] MED LIST changes: -FAMO-63 PO; -IOHEXOL 300 MG/ML 75 ML VIAL IV ONE; -PRED50TA PO
[2016-08-11] MEDS ORDERED: IV NORMAL SALINE 1000ML BAG 1,000 ML IV ONE (22:45)
[2016-08-11] MEDS ORDERED: methylPREDNISolone SOD SUCC PF 125 MG/2 ML VIAL. IV ONE (22:45)
[2016-08-11] MEDS ORDERED: FAMOTIDINE 20 MG/2 ML VIAL IVP ONE (22:45)
--- NOTE | 2016-08-11 22:48 | PHYS DOC ---
Past Medical History Past Medical History: Arthritis, GERD, Hypertension, Migraines Past Surgical History: Appendectomy, Other Additional Past Surgical Histo: TURP Alcohol Use: None Drug Use: None Adult General Chief Complaint Chief Complaint: ALLERGIC REACTION HPI HPI Patient is a 65 year old male with history of acid reflex, hypertension, who presents with a rash that begun at 7:30 PM. Patient states he had a CT with IV contrast done earlier today, he states he has had CT with IV contrast before with no issues. He states he also had cherries this evening. Patient denies any difficulty breathing or swallowing. Review of Systems Review of Systems Constitutional: Denies fever or chills [] Eyes: Denies change in visual acuity, redness, or eye pain [] HENT: Denies nasal congestion or sore throat [] Respiratory: Denies cough or shortness of breath [] Cardiovascular: No additional information not addressed in HPI [] GI: Denies abdominal pain, nausea, vomiting, bloody stools or diarrhea [] : Denies dysuria or hematuria [] Musculoskeletal: Denies back pain or joint pain [] Integument: rash Neurologic: Denies headache, focal weakness or sensory changes [] Endocrine: Denies polyuria or polydipsia [] Current Medications Current Medications Current Medications Medications (Trade) Dose Ordered Sig/Meghana Start Time Stop Time Status Last Admin Dose Admin Famotidine (Pepcid) 20 mg 1X ONCE 08/11/16 22:45 08/11/16 22:46 DC 08/11/16 22:42 20 MG Methylprednisolone Sodium Succinate (SOLU-Medrol 125MG VIAL) 125 mg 1X ONCE 08/11/16 22:45 08/11/16 22:46 DC 08/11/16 22:41 125 MG Sodium Chloride 1,000 ml @ 1,000 mls/hr 1X ONCE 08/11/16 22:45 08/11/16 23:44 DC 08/11/16 22:42 1,000 MLS/HR Allergies Allergies Allergies Coded Allergies Type Severity Reaction Last Updated Verified Iodinated Contrast Media - Oral and Allergy Severe SEVERE BRIGHT RED RASH 08/11 Yes Physical Exam Physical Exam Constitutional: Well developed, well nourished, no acute distress, non-toxic appearance. [] HENT: Normocephalic, atraumatic, bilateral external ears normal, oropharynx moist, no oral exudates, nose normal. [] Eyes: PERRLA, EOMI, conjunctiva normal, no discharge. [] Neck: Normal range of motion, no tenderness, supple, no stridor. [] Cardiovascular:Heart rate regular rhythm, no murmur [] Lungs & Thorax: Bilateral breath sounds clear to auscultation [] Abdomen: Bowel sounds normal, soft, no tenderness, no masses, no pulsatile masses. [] Skin: Patient's upper tarso has erythema, small amount of erythematous papular rash on bilateral upper extremities. Back: No tenderness, no CVA tenderness. [] Extremities: No tenderness, no cyanosis, no clubbing, ROM intact, no edema. [] Neurologic: Alert and oriented X 3, normal motor function, normal sensory function, no focal deficits noted. [] Psychologic: Affect normal, judgement normal, mood normal. [] Current Patient Data Vital Signs Vital Signs Date Time Temp Pulse Resp B/P (MAP) Pulse Ox O2 Delivery O2 Flow Rate FiO2 08/11/16 22:22 98.0 106 22 97 Room Air 98.0 Lab Values Laboratory Tests Test 08/11/16 22:35 White Blood Count 8.0 x10^3/uL (4.0-11.0) Red Blood Count 5.47 x10^6/uL (4.30-5.70) Hemoglobin 16.3 g/dL (13.0-17.5) Hematocrit 47.6 % (39.0-53.0) Mean Corpuscular Volume 87 fL (79-100) Mean Corpuscular Hemoglobin 30 pg (25-35) Mean Corpuscular Hemoglobin Concent 34 g/dL (31-37) Red Cell Distribution Width 13.5 % (11.5-14.5) Platelet Count 236 x10^3/uL (140-400) Neutrophils (%) (Auto) 86 % (31-73) H Lymphocytes (%) (Auto) 11 % (24-48) L Monocytes (%) (Auto) 3 % (0-9) Eosinophils (%) (Auto) 1 % (0-3) Basophils (%) (Auto) 0 % (0-3) Neutrophils # (Auto) 6.8 x10^3uL (1.8-7.7) Lymphocytes # (Auto) 0.9 x10^3/uL (1.0-4.8) L Monocytes # (Auto) 0.2 x10^3/uL (0.0-1.1) Eosinophils # (Auto) 0.0 x10^3/uL (0.0-0.7) Basophils # (Auto) 0.0 x10^3/uL (0.0-0.2) Segmented Neutrophils % 81 % (35-66) H Band Neutrophils % 4 % (0-9) Lymphocytes % 11 % (24-48) L Monocytes % 3 % (0-10) Eosinophils % 1 % (0-5) Platelet Estimate Adequate (ADEQUATE) Sodium Level 142 mmol/L (136-145) Potassium Level 3.5 mmol/L (3.5-5.1) Chloride Level 104 mmol/L (98-107) Carbon Dioxide Level 31 mmol/L (21-32) Anion Gap 7 (6-14) Blood Urea Nitrogen 16 mg/dL (8-26) Creatinine 1.2 mg/dL (0.7-1.3) Estimated GFR (Cockcroft-Gault) 60.4 Glucose Level 131 mg/dL (70-99) H Calcium Level 8.9 mg/dL (8.5-10.1) Laboratory Tests 08/11/16 22:35 Laboratory Tests 08/11/16 22:35 EKG EKG [] Radiology/Procedures Radiology/Procedures [] Course & Med Decision Making Course & Med Decision Making Pertinent Labs and Imaging studies reviewed. (See chart for details) This is a 65-year-old male patient who presents to the ED with a possible allergic reaction. He had CT with IV contrast earlier today with no issues. This is not the first time for him to have CT with IV contrast he also had cherries this evening. He developed a rash around 7:30 PM. He took 50 mg of Benadryl prior to coming to the ED. We gave him Solu-Medrol and Pepcid in the ED. We also gave him a liter of fluid. Labs are negative for any acute findings. He was discharged with Benadryl Pepcid and prednisone. He was instructed to contact his doctors on Sunday and let them know he had a reaction possibly from the IV contrast. Dragon Disclaimer Dragon Disclaimer This electronic medical record was generated, in whole or in part, using a voice recognition dictation system. Departure Departure Impression: Primary Impression: Allergic reaction Disposition: HOME, SELF-CARE Condition: STABLE Referrals: GERSON SORIANO MD (PCP) Follow-up with your own doctor next week Patient Instructions: Drug Allergy Additional Instructions: You were seen for an allergic reaction. Please take prednisone as prescribed. Take Pepcid daily until the rash is gone. Take Benadryl every 4 hours until the rash clears up. Follow-up with your own doctor next week. Scripts Famotidine (PEPCID) 20 Mg Tablet 20 MG PO DAILY for 5 Days, #5 TAB Prov: JESSICA RODRIGUEZ APRN 08/11/16 Prednisone (PREDNISONE) 50 Mg Tablet 1 TAB PO DAILY, #5 TAB Prov: JESSICA RODRIGUEZ APRN 08/11/16 Problem Qualifiers Primary Impression: Allergic reaction Encounter type: initial encounter Qualified Codes: T78.40XA - Allergy, unspecified, initial encounter JESSICA RODRIGUEZ APRN August 11, 2016 22:48
[2016-08-11 22:49] LABS: BASO % 0 % (0-3); EOS % 1 % (0-3); HEMATOCRIT 47.6 % (39.0-53.0); HEMOGLOBIN 16.3 g/dL (13.0-17.5); LYMPH # 0.9 x10^3/uL (1.0-4.8); LYMPH % 11 % (24-48); MEAN CORPUSCULAR HEMOGLOBIN 30 pg (25-35); MEAN CORPUSCULAR HGB CONC 34 g/dL (31-37); MEAN CORPUSCULAR VOLUME 87 fL (79-100); MONO % 3 % (0-9); NEUT % 86 % (31-73); PLATELET COUNT 236 x10^3/uL (140-400); RED BLOOD COUNT 5.47 x10^6/uL (4.30-5.70); RED CELL DISTRIBUTION WIDTH 13.5 % (11.5-14.5)
[2016-08-11 22:58] LABS: CALCIUM 8.9 mg/dL (8.5-10.1); CREATININE 1.2 mg/dL (0.7-1.3); GFR 60.4; POTASSIUM 3.5 mmol/L (3.5-5.1)
[2016-08-11 23:11] LABS: % EOS 1 % (0-5); PLT ESTIMATE ADEQUATE (ADEQUATE)
[2016-08-11] MEDS ORDERED: FAMO-63 PO (23:45)
[2016-08-11] MEDS ORDERED: PRED50TA PO (23:45)
[2016-08-12] VITALS: BP 120/64
== END 2016-08-12 00:10 | disposition home or self-care (01) ==
LOC: ER 22:13
DX: T78.40XA Allergy, unspecified, initial encounter (principal); M19.90 Unspecified osteoarthritis, unspecified site; K21.9 Gastro-esophageal reflux disease without esophagitis; I10 Essential (primary) hypertension; Z91.041 Radiographic dye allergy status; X58.XXXA Exposure to other specified factors, initial encounter
CPT/HCPCS: 36415; 80048; 85007; 85027; 96361; 96374; 96375; 99284; J2930; J7030; S0028

== ENCOUNTER → 2016-08-11 | Outpatient (CLI) | payer OTHER ==
[~2016-08-11] MED LIST changes: +FAMO-63 PO; +IOHEXOL 300 MG/ML 75 ML VIAL IV ONE; +PRED50TA PO
--- NOTE | 2016-08-11 12:16 | RAD ---
Examination: CT angiogram of the chest History: History of pulmonary embolism Comparison: 06/29/2016 Technique: Axial CT angiographic images were performed with IV contrast. Coronal and sagittal 3-D MIP reformats are performed PQRS Compliance Statement: One or more of the following individualized dose reduction techniques were utilized for this examination: 1. Automated exposure control 2. Adjustment of the mA and/or kV according to patient size 3. Use of iterative reconstruction technique Findings: There is no evidence of filling defect identified in the main pulmonary arterial trunk and right and left main pulmonary arteries. The visualized lobar, segmental branches of the pulmonary arteries demonstrate no evidence of filling defects. Compared to prior exam there is significant improvement with complete resolution of the pulmonary emboli. The heart is grossly appears unremarkable. The caliber of the aorta grossly appears unremarkable. Small hiatal hernia. No radiological significant mediastinal lymphadenopathy is identified. Small focus of airspace opacity identified in the right lung base probably old infarct has decreased in size compared to prior exam. The previously visualized airspace opacities identified in the left upper lobe and right middle lobe of the lung have resolved. No evidence of pleural effusion or pneumothorax. There is mild decreased attenuation noted throughout the liver likely hepatic steatosis. The visualized adrenal glands grossly appears unremarkable. Mild degenerative changes thoracic spine. Impression: 1. Complete resolution of the pulmonary emboli. No evidence of pulmonary emboli. 2. Small focus of airspace opacity identified in the right lung base probably old infarct has decreased in size compared to prior exam. The previously visualized airspace opacities identified in the left upper lobe and right middle lobe of the lung have resolved.
== END | disposition home or self-care (01) ==
LOC: CT 13:07
PROVIDERS: ATTEND Internal Medicine Critical Care Medicine
DX: I26.99 Other pulmonary embolism without acute cor pulmonale (principal)
CPT/HCPCS: 71275; Q9967

== ENCOUNTER 2016-10-24 11:09 | Emergency (ER) | payer OTHER ==
[~2016-10-24] VITALS: Ht 182.9 cm; Wt 121.6 kg
[~2016-10-24 11:09] MED LIST changes: +ASPI-630 PO; -ASPI81TA2 PO; +DOCU100C28 PO; -DOCU100C5 PO; +FAMO-63 PO; +PRED50TA PO
[2016-10-24 11:41] LABS: BASO # 0.1 x10^3/uL (0.0-0.2); BASO % 1 % (0-3); EOS % 1 % (0-3); HEMATOCRIT 42.2 % (39.0-53.0); HEMOGLOBIN 14.7 g/dL (13.0-17.5); LYMPH # 2.1 x10^3/uL (1.0-4.8); LYMPH % 36 % (24-48); MEAN CORPUSCULAR HEMOGLOBIN 30 pg (25-35); MEAN CORPUSCULAR HGB CONC 35 g/dL (31-37); MEAN CORPUSCULAR VOLUME 86 fL (79-100); MONO % 8 % (0-9); NEUT % 54 % (31-73); PLATELET COUNT 204 x10^3/uL (140-400); RED BLOOD COUNT 4.94 x10^6/uL (4.30-5.70); RED CELL DISTRIBUTION WIDTH 13.9 % (11.5-14.5)
--- NOTE | 2016-10-24 11:57 | PHYS DOC ---
Past Medical History Past Medical History: Arthritis, GERD, Hypertension, Migraines Additional Past Medical Histor: PE, xiao's esophagus Past Surgical History: Appendectomy, Other Additional Past Surgical Histo: TURP Alcohol Use: Rarely Drug Use: None Adult General Chief Complaint Chief Complaint: SHORTNESS OF BREATH HPI HPI Patient is a 65 year old male presents to the emergency department stating that he had been on Xarelto and was just taken off of it for the last 9 days. He was on Xarelto for a PE. Patient states that he was out walking his dog today when he developed shortness of air difficulty breathing. Patient states that he also felt a pain in the left chest into his back area. Patient continues to state that his brother has recently been diagnosed with DVTs in bilateral legs. Patient also states that he has had bilateral lower leg swelling. Patient states that he has had no fevers no chills no nausea no vomiting. Patient denies any cough. Review of Systems Review of Systems Constitutional: Denies fever or chills [] Eyes: Denies change in visual acuity, redness, or eye pain [] HENT: Denies nasal congestion or sore throat [] Respiratory: Denies cough complaint of shortness of breath [] Cardiovascular: No additional information not addressed in HPI [] GI: Denies abdominal pain, nausea, vomiting, bloody stools or diarrhea [] : Denies dysuria or hematuria [] Musculoskeletal: Denies back pain or joint pain [] Integument: Denies rash or skin lesions [] Neurologic: Denies headache, focal weakness or sensory changes [] Endocrine: Denies polyuria or polydipsia [] Current Medications Current Medications Current Medications Medications (Trade) Dose Ordered Sig/Meghana Start Time Stop Time Status Last Admin Dose Admin Diphenhydramine HCl (Benadryl) 50 mg 1X ONCE 10/24/16 12:30 10/24/16 12:31 DC 10/24/16 12:42 50 MG Famotidine (Pepcid) 40 mg 1X ONCE 10/24/16 12:30 10/24/16 12:31 DC 10/24/16 12:45 40 MG Info (Do NOT chart on this entry -- for MONITORING) 1 each PRN DAILY PRN 10/24/16 13:00 10/26/16 12:59 Iohexol (Omnipaque 300 Mg/ml) 75 ml 1X ONCE 10/24/16 12:30 10/24/16 12:31 DC Iohexol (Omnipaque 350 Mg/ml) 100 ml 1X ONCE 10/24/16 13:00 10/24/16 13:01 DC 10/24/16 13:01 100 ML Methylprednisolone Sodium Succinate (SOLU-Medrol 125MG VIAL) 125 mg 1X ONCE 10/24/16 12:30 10/24/16 12:31 DC 10/24/16 12:50 125 MG Potassium Chloride (Klor-Con) 40 meq 1X ONCE 10/24/16 12:15 10/24/16 12:16 DC 10/24/16 12:49 40 MEQ Allergies Allergies Allergies Coded Allergies Type Severity Reaction Last Updated Verified Iodinated Contrast Media - Oral and Allergy Severe SEVERE BRIGHT RED RASH 08/11 Yes Physical Exam Physical Exam Constitutional: Well developed, well nourished, no acute distress, non-toxic appearance. [] HENT: Normocephalic, atraumatic, bilateral external ears normal, oropharynx moist, no oral exudates, nose normal. [] Eyes: PERRLA, EOMI, conjunctiva normal, no discharge. [] Neck: Normal range of motion, no tenderness, supple, no stridor. [] Cardiovascular:Heart rate regular rhythm, no murmur [] Lungs & Thorax: Bilateral breath sounds clear to auscultation [] Abdomen: Bowel sounds hypoactive soft, no tenderness, no masses, no pulsatile masses. [] Skin: Warm, dry, no erythema, no rash. [] Back: No tenderness] Extremities: No tenderness, no cyanosis, no clubbing, ROM intact, patient with bilateral lower leg swelling. Peripheral pulses 2+ cap refill brisk less than 2 seconds. Neurologic: Alert and oriented X 3, normal motor function, normal sensory function, no focal deficits noted. [] Psychologic: Affect normal, judgement normal, mood normal. [] Current Patient Data Vital Signs Vital Signs Date Time Temp Pulse Resp B/P (MAP) Pulse Ox O2 Delivery O2 Flow Rate FiO2 10/24/16 13:43 64 135/79 (97) 93 Room Air 10/24/16 12:18 18 10/24/16 11:20 97.6 97.6 Lab Values Laboratory Tests Test 10/24/16 11:30 White Blood Count 6.0 x10^3/uL (4.0-11.0) Red Blood Count 4.94 x10^6/uL (4.30-5.70) Hemoglobin 14.7 g/dL (13.0-17.5) Hematocrit 42.2 % (39.0-53.0) Mean Corpuscular Volume 86 fL (79-100) Mean Corpuscular Hemoglobin 30 pg (25-35) Mean Corpuscular Hemoglobin Concent 35 g/dL (31-37) Red Cell Distribution Width 13.9 % (11.5-14.5) Platelet Count 204 x10^3/uL (140-400) Neutrophils (%) (Auto) 54 % (31-73) Lymphocytes (%) (Auto) 36 % (24-48) Monocytes (%) (Auto) 8 % (0-9) Eosinophils (%) (Auto) 1 % (0-3) Basophils (%) (Auto) 1 % (0-3) Neutrophils # (Auto) 3.2 x10^3uL (1.8-7.7) Lymphocytes # (Auto) 2.1 x10^3/uL (1.0-4.8) Monocytes # (Auto) 0.5 x10^3/uL (0.0-1.1) Eosinophils # (Auto) 0.1 x10^3/uL (0.0-0.7) Basophils # (Auto) 0.1 x10^3/uL (0.0-0.2) D-Dimer (Anjali) 0.66 ug/mlFEU (0.00-0.50) H Sodium Level 141 mmol/L (136-145) Potassium Level 3.2 mmol/L (3.5-5.1) L Chloride Level 103 mmol/L (98-107) Carbon Dioxide Level 29 mmol/L (21-32) Anion Gap 9 (6-14) Blood Urea Nitrogen 17 mg/dL (8-26) Creatinine 1.1 mg/dL (0.7-1.3) Estimated GFR (Cockcroft-Gault) 66.8 BUN/Creatinine Ratio 15 (6-20) Glucose Level 102 mg/dL (70-99) H Calcium Level 9.3 mg/dL (8.5-10.1) Total Bilirubin 0.7 mg/dL (0.2-1.0) Aspartate Amino Transferase (AST) 24 U/L (15-37) Alanine Aminotransferase (ALT) 24 U/L (16-63) Alkaline Phosphatase 82 U/L (46-116) Troponin I Quantitative < 0.017 ng/mL (0.000-0.055) GL-Wkv-M-Type Natriuretic Peptide 34 pg/mL (0-124) Total Protein 7.9 g/dL (6.4-8.2) Albumin 4.1 g/dL (3.4-5.0) Albumin/Globulin Ratio 1.1 (1.0-1.7) Laboratory Tests 10/24/16 11:30 Laboratory Tests 10/24/16 11:30 EKG EKG EKG completed at 1123 with a heart rate of 78 sinus rhythm noted normal EKG noted no STEMI per Dr. Stahl[] Radiology/Procedures Radiology/Procedures [][facility] [address] [place] [address] IMAGING REPORT Signed PATIENT: MARCELO ZARCO ACCOUNT: [id number] : 1950 LOCATION: ER AGE: 65 SEX: M EXAM STATUS: REG ER ORD. PHYSICIAN: ALEKSANDAR MORRISSEY APRN REASON: SOA left chest pain PROCEDURE: PORTABLE CHEST 1V Portable chest, 10/24/2016: History: Shortness of breath, chest pain Comparison is made to a study from 06/30/2016. The heart size and pulmonary vascularity are normal. The lungs are clear. There is no evidence of pleural fluid. IMPRESSION: No acute cardiopulmonary abnormality is detected. DICTATED and SIGNED BY: ABBY CHOWDHURY MD DATE: 10/24/16 1155 CC: ALEKSANDAR MORRISSEY APRN; GERSON SORIANO MD; NON,STAFF ~ Course & Med Decision Making Course & Med Decision Making Pertinent Labs and Imaging studies reviewed. (See chart for details) Spoke with Dr. Soriano in regards to the patient's CT scan being negative and slightly elevated d-dimer 0.[address]. Spoke with him in regards to labs being normal. Patient having slight shortness of air although breath sounds are clear there is no wheezing. No pneumonia noted per chest x- ray or per CT scan. He feels the patient is capable of going home if he feels comfortable. Spoke with patient who feels comfortable going home at this time. Patient was provided with discharge instructions signs and symptoms to return back to the emergency department. He was also informed that he can follow-up with Dr. Soriano later in the week if he feels the need. Patient agrees with discharge instructions, treatment regimens and follow-up recommendations. Dragon Disclaimer Dragon Disclaimer This electronic medical record was generated, in whole or in part, using a voice recognition dictation system. Departure Departure Impression: Primary Impression: SOB (shortness of breath) Disposition: HOME, SELF-CARE Condition: STABLE Referrals: GERSON SORIANO MD (PCP) Patient Instructions: Shortness of Breath, Dway-me-Yjko Additional Instructions: Your CT scan was negative for any pulmonary emboli. Your lab work was negative although the potassium was slightly low at 3.2 provided with potassium supplement here in the emergency department. Refrain from taking potassium tonight as you were provided with a supplement here in the emergency department. Activity as tolerated. Tylenol for pain or discomfort. Follow-up with your primary care physician next 3-5 days. Return back to emergency prior signs symptoms of become worse. ALEKSANDAR MORRISSEY CORPORATE ASSOCIATE Oct 24, 2016 11:57
[2016-10-24 12:02] LABS: CALCIUM 9.3 mg/dL (8.5-10.1); CREATININE 1.1 mg/dL (0.7-1.3); GFR 66.8; POTASSIUM 3.2 mmol/L (3.5-5.1)
[2016-10-24 12:08] LABS: ALBUMIN 4.1 g/dL (3.4-5.0); ALBUMIN/GLOBULIN RATIO 1.1 (1.0-1.7); TOTAL BILIRUBIN 0.7 mg/dL (0.2-1.0); TOTAL PROTEIN 7.9 g/dL (6.4-8.2)
[2016-10-24] MEDS ORDERED: POTASSIUM CHLORIDE 20 MEQ TABLET.ER. PO ONE (12:15)
[2016-10-24] MEDS ORDERED: methylPREDNISolone SOD SUCC PF 125 MG/2 ML VIAL. IV ONE (12:30)
[2016-10-24] MEDS ORDERED: FAMOTIDINE 20 MG/2 ML VIAL IVP ONE (12:30)
[2016-10-24] MEDS ORDERED: diphenhydrAMINE 50 MG/ML VIAL IVP ONE (12:30)
[2016-10-24] MEDS ORDERED: IOHEXOL 300 MG/ML 75 ML VIAL IV ONE (12:30)
--- NOTE | 2016-10-24 12:44 | EKG ---
[facility] [address] [place] [address] Test Date: 2016-10-24 Test Time: 11:23:54 Pat Name: MARCELO ZARCO Department: Room: Gender: M Professional Nurse: : 1950 Requested By: ALEKSANDAR MORRISSEY Order Number: [id number] Reading MD: Fran Duque Measurements Intervals [place] Rate: 78 P: 56 CA: 178 QRS: 25 QRSD: 92 T: 18 QT: 368 QTc: 423 Interpretive Statements SINUS RHYTHM NORMAL ECG RI6.01 Compared to ECG 06/29/2016 09:31:57 Sinus tachycardia no longer present Electronically Signed On 10-24-2016 17:19:58 CDT by Fran Duque
[2016-10-24] MEDS ORDERED: IOHEXOL 350 MG/ML 100 ML VIAL. IV ONE (13:00)
[2016-10-24] MEDS ORDERED: CONTRAST GIVEN MC PRN (13:00)
--- NOTE | 2016-10-24 13:39 | RAD ---
CTA of the chest with contrast, 10/24/2016: History: Elevated d-dimer, shortness of breath, previous pulmonary emboli Multidetector CT imaging was performed following an IV bolus injection of iodinated contrast material. Multiplanar reconstructions were produced including coronal MIP images. Comparison is made to a study from 08/11/2016. The central pulmonary arteries are well opacified and no filling defects are seen to suggest pulmonary emboli. No mediastinal or hilar adenopathy is seen. There appears to be a small hiatal hernia. An opacity previously seen in the right lung base posteriorly has regressed with only mild residual linear densities compatible with scarring. No new pulmonary infiltrate is seen. There is no evidence of pleural fluid. IMPRESSION: 1. No CT evidence of central pulmonary emboli. 2. 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 PQRS Compliance Statement: One or more of the following individualized dose reduction techniques were utilized for this examination: 1. Automated exposure control 2. Adjustment of the mA and/or kV according to patient size 3. Use of iterative reconstruction technique
[2016-10-24 14:18] VITALS: BP 117/75
== END 2016-10-24 14:57 | disposition home or self-care (01) ==
LOC: ER 11:09
DX: R06.02 Shortness of breath (principal); R07.89 Other chest pain; R22.43 Localized swelling, mass and lump, lower limb, bilateral; I10 Essential (primary) hypertension; K21.9 Gastro-esophageal reflux disease without esophagitis; Z86.711 Personal history of pulmonary embolism; G43.909 Migraine, unspecified, not intractable, without status migrainosus; M19.90 Unspecified osteoarthritis, unspecified site; Z90.49 Acquired absence of other specified parts of digestive tract; Z91.041 Radiographic dye allergy status
CPT/HCPCS: 36415; 71010; 71275; 80053; 83880; 84484; 85027; 85379; 93005; 96374; 96375; 99285; J1200; J2930; Q9967; S0028

== ENCOUNTER 2018-05-27 19:32 | Inpatient (IN) | payer OTHER ==
[~2018-05-27] VITALS: Ht 182.9 cm; Wt 106.1 kg
[~2018-05-27 19:32] MED LIST changes: +AMLO5TAB10 PO; +HYDR-3164 PO; -HYDR-971 PO; -NIFE60TA10 PO; +NIFE60TA14 PO
[2018-05-27] MEDS ORDERED: IV NORMAL SALINE 1000ML BAG 1,000 ML IV SCH (19:51)
[2018-05-27] MEDS ORDERED: MORPHINE SULFATE 4 MG/ML VIAL. IV ONE (20:00)
[2018-05-27] MEDS ORDERED: NITROGLYCERIN SUBLINGUAL 0.4 MG BOTTLE OF 25. SL PRN (20:00)
[2018-05-27] MEDS ORDERED: ASPIRIN CHEWABLE 81 MG TABLET. PO ONE (20:00)
--- NOTE | 2018-05-27 20:00 | PHYS DOC ---
Past Medical History Past Medical History: Arthritis, GERD, Hypertension, Migraines Additional Past Medical Histor: PE, xiao's esophagus Past Surgical History: Appendectomy, Other Additional Past Surgical Histo: TURP Alcohol Use: Rarely Drug Use: None Adult General Chief Complaint Chief Complaint: CHEST PAIN HPI HPI Patient is a 67-year-old male who presents to emergency department complaining of some left-sided chest pressure which began just prior to arrival. He reports shortness of breath, but no pleuritic pain. He has had some cramping in his legs for the past few days. He states he had a pulmonary embolism about 2 years ago on his symptoms feel somewhat similar. Denies any dizziness or lightheadedness. Chest pressure which she experiences radiates towards his left arm and left upper back. There are no alleviating or exacerbating factors to his symptoms otherwise. Review of Systems Review of Systems Constitutional: Denies fever or chills [] Eyes: Denies change in visual acuity, redness, or eye pain [] HENT: Denies nasal congestion or sore throat [] Respiratory: Denies cough. Reports shortness of breath [] Cardiovascular: No additional information not addressed in HPI [] GI: Denies abdominal pain, nausea, vomiting, bloody stools or diarrhea [] : Denies dysuria or hematuria [] Musculoskeletal: Denies back pain or joint pain [] Integument: Denies rash or skin lesions [] Neurologic: Denies headache, focal weakness or sensory changes [] Endocrine: Denies polyuria or polydipsia [] All other systems were reviewed and found to be within normal limits, except as documented in this note. Current Medications Current Medications Current Medications Medications (Trade) Dose Ordered Sig/Meghana Start Time Stop Time Status Last Admin Dose Admin Aspirin (Children'S Aspirin) 324 mg 1X ONCE 05/27/18 20:00 05/27/18 20:01 DC 05/27/18 21:06 324 MG Diphenhydramine HCl (Benadryl) 50 mg 1X ONCE 05/27/18 21:00 05/27/18 21:01 DC 05/27/18 21:09 50 MG Enoxaparin Sodium (Lovenox 100mg Syringe) 100 mg 1X ONCE 05/27/18 22:00 05/27/18 22:01 Methylprednisolone Sodium Succinate (SOLU-Medrol 125MG VIAL) 125 mg 1X ONCE 05/27/18 21:00 05/27/18 21:01 DC 05/27/18 21:00 125 MG Morphine Sulfate (Morphine Sulfate) 4 mg 1X ONCE 05/27/18 20:00 05/27/18 20:01 DC Nitroglycerin (Nitrostat) 0.4 mg PRN Q5MIN PRN 05/27/18 20:00 05/27/18 21:07 0.4 MG Sodium Chloride 1,000 ml @ 100 mls/hr Q10H 05/27/18 19:51 05/28/18 05:50 05/27/18 21:15 100 MLS/HR Allergies Allergies Allergies Coded Allergies Type Severity Reaction Last Updated Verified Iodinated Contrast- Oral and IV Dye Allergy Severe SEVERE BRIGHT RED RASH 08/11 Yes hydrocodone Allergy Intermediate 01/28/17 Yes Physical Exam Physical Exam PHYSICAL EXAM: CONSTITUTIONAL: Well developed, well nourished HEAD: normocephalic, atraumatic EENT: PERRL, EOMI. Conjunctivae normal color, sclerae non-icteric; moist mucous membranes. NECK: Supple, non-tender; no meningismus. LUNGS: Lungs CTA, breathing even and unlabored. Normal air movement. HEART: Regular rate and rhythm, no murmur CHEST: No deformity; non-tender ABDOMEN: The abdomen is soft, and non-tender, no masses or bruits. EXTREM: Normal ROM; no deformity, no calf tenderness there is mild tenderness to palpation to the thighs bilaterally, medially, right greater than left. Normal pulses palpable in all extremities. There is no pedal edema. SKIN: No rash; no diaphoresis NEURO: Alert; normal speech and cognition; CN's grossly intact; strength grossly intact without focal deficit. BACK: No CVA TTP. Current Patient Data Vital Signs Vital Signs Date Time Temp Pulse Resp B/P (MAP) Pulse Ox O2 Delivery O2 Flow Rate FiO2 05/27/18 21:07 97 131/80 05/27/18 19:35 98.5 18 97 Room Air 98.5 Lab Values Laboratory Tests Test 05/27/18 19:57 White Blood Count 12.8 x10^3/uL (4.0-11.0) H Red Blood Count 5.09 x10^6/uL (4.30-5.70) Hemoglobin 15.3 g/dL (13.0-17.5) Hematocrit 45.3 % (39.0-53.0) Mean Corpuscular Volume 89 fL (79-100) Mean Corpuscular Hemoglobin 30 pg (25-35) Mean Corpuscular Hemoglobin Concent 34 g/dL (31-37) Red Cell Distribution Width 13.3 % (11.5-14.5) Platelet Count 190 x10^3/uL (140-400) Neutrophils (%) (Auto) 77 % (31-73) H Lymphocytes (%) (Auto) 16 % (24-48) L Monocytes (%) (Auto) 6 % (0-9) Eosinophils (%) (Auto) 1 % (0-3) Basophils (%) (Auto) 1 % (0-3) Neutrophils # (Auto) 9.8 x10^3uL (1.8-7.7) H Lymphocytes # (Auto) 2.0 x10^3/uL (1.0-4.8) Monocytes # (Auto) 0.7 x10^3/uL (0.0-1.1) Eosinophils # (Auto) 0.1 x10^3/uL (0.0-0.7) Basophils # (Auto) 0.1 x10^3/uL (0.0-0.2) Prothrombin Time 14.2 SEC (11.7-14.0) H Prothrombin Time INR 1.1 (0.8-1.1) Sodium Level 142 mmol/L (136-145) Potassium Level 3.6 mmol/L (3.5-5.1) Chloride Level 101 mmol/L (98-107) Carbon Dioxide Level 29 mmol/L (21-32) Anion Gap 12 (6-14) Blood Urea Nitrogen 17 mg/dL (8-26) Creatinine 1.1 mg/dL (0.7-1.3) Estimated GFR (Cockcroft-Gault) 66.4 BUN/Creatinine Ratio 15 (6-20) Glucose Level 104 mg/dL (70-99) H Calcium Level 9.2 mg/dL (8.5-10.1) Magnesium Level 2.0 mg/dL (1.8-2.4) Total Bilirubin 0.9 mg/dL (0.2-1.0) Aspartate Amino Transferase (AST) 19 U/L (15-37) Alanine Aminotransferase (ALT) 21 U/L (16-63) Alkaline Phosphatase 91 U/L (46-116) Creatine Kinase 144 U/L (39-308) Creatine Kinase MB (Mass) 0.8 ng/mL (0.0-3.6) Creatine Kinase MB Relative Index 0.6 % (0-4) Troponin I Quantitative < 0.017 ng/mL (0.000-0.055) XJ-Rfs-C-Type Natriuretic Peptide 30 pg/mL (0-124) Total Protein 8.1 g/dL (6.4-8.2) Albumin 4.2 g/dL (3.4-5.0) Albumin/Globulin Ratio 1.1 (1.0-1.7) Laboratory Tests 05/27/18 19:57 Laboratory Tests 05/27/18 19:57 EKG EKG [Normal sinus rhythm at a rate of 88 beats for minute, normal axis, normal intervals, there are no acute ischemic ST/T changes.] Radiology/Procedures Radiology/Procedures [ER physician preliminary chest x-ray interpretation: No acute disease.] Course & Med Decision Making Course & Med Decision Making Pertinent Labs and Imaging studies reviewed. (See chart for details) [9:35 PM: The patient's condition remains stable. Due to the patient's past history of contrast allergies, where he had hives even with premedication, the radiologist did not want to do a CT angiogram, at least tonight. He recommended a VQ scan, which has been ordered but will take several hours to obtain. I will treat the patient presumptively for possible PE with a therapeutic dose of Lovenox, and admit the patient to the hospital for further evaluation, both of his chest pain and possible PE. I spoke with Dr. quintanilla, on-call for the patient 's PCP, who will admit the patient.] Dragon Disclaimer Dragon Disclaimer This electronic medical record was generated, in whole or in part, using a voice recognition dictation system. Departure Departure Impression: Primary Impression: Chest pain Disposition: ADMITTED INPATIENT Admitting Physician: Jaylyn Quintanilla Condition: STABLE Referrals: GERSON SORIANO MD (PCP) GERSON CUELLAR MD May 27, 2018 20:00
[2018-05-27 20:03] LABS: BASO # 0.1 x10^3/uL (0.0-0.2); BASO % 1 % (0-3); EOS # 0.1 x10^3/uL (0.0-0.7); EOS % 1 % (0-3); HEMATOCRIT 45.3 % (39.0-53.0); HEMOGLOBIN 15.3 g/dL (13.0-17.5); LYMPH % 16 % (24-48); MEAN CORPUSCULAR HEMOGLOBIN 30 pg (25-35); MEAN CORPUSCULAR HGB CONC 34 g/dL (31-37); MEAN CORPUSCULAR VOLUME 89 fL (79-100); MONO # 0.7 x10^3/uL (0.0-1.1); MONO % 6 % (0-9); NEUT # 9.8 x10^3uL (1.8-7.7); NEUT % 77 % (31-73); PLATELET COUNT 190 x10^3/uL (140-400); RED BLOOD COUNT 5.09 x10^6/uL (4.30-5.70); RED CELL DISTRIBUTION WIDTH 13.3 % (11.5-14.5); WHITE BLOOD COUNT 12.8 x10^3/uL (4.0-11.0)
[2018-05-27 20:13] LABS: PROTHROMBIN TIME PATIENT 14.2 SEC (11.7-14.0)
[2018-05-27 20:14] LABS: CALCIUM 9.2 mg/dL (8.5-10.1); CREATININE 1.1 mg/dL (0.7-1.3); GFR 66.4; POTASSIUM 3.6 mmol/L (3.5-5.1)
[2018-05-27 20:19] LABS: ALBUMIN 4.2 g/dL (3.4-5.0); ALBUMIN/GLOBULIN RATIO 1.1 (1.0-1.7); TOTAL BILIRUBIN 0.9 mg/dL (0.2-1.0); TOTAL PROTEIN 8.1 g/dL (6.4-8.2)
[2018-05-27] MEDS ORDERED: methylPREDNISolone SOD SUCC PF 125 MG/2 ML VIAL. IV ONE (21:00)
[2018-05-27] MEDS ORDERED: diphenhydrAMINE 50 MG/ML VIAL IVP ONE (21:00)
--- NOTE | 2018-05-27 21:51 | RAD ---
Bilateral lower extremity venous doppler ultrasound History: Chest pain, leg cramping, shortness of breath, history of pulmonary embolism Findings: Multiple grayscale, color, and duplex spectral analysis sonographic images were acquired of the bilateral lower extremity veins to evaluate for the presence of DVT. There is normal phasicity. Normal compression, color-flow, and augmentation is demonstrated from the bilateral common femoral to the popliteal veins. There is normal color flow of the proximal greater saphenous and profunda femoris veins. There is normal color flow of segments of the calf veins. Impression: 1. There is no evidence of deep venous thrombosis from the bilateral common femoral to popliteal veins. Electronically signed by: Tj Gamino MD (05/27/2018 9:48 PM) [facility]
[2018-05-27 22:45] VITALS: BP 139/76
--- NOTE | 2018-05-27 22:45 | NUR ---
The patient, MARCELO ZARCO, 67 y/o, M admitted by AR FRAGA MD, was given written information regarding hospital policies, unit procedures and contact persons. Patient was transported from ED via wheelchair with by his side, VSS, afebrile, and denied any pain. RN performed a head to toe assessment at that time. Admission packet and patient passcode was given to patient and spouse. Valuables were checked and left with patient in the room.
--- NOTE | 2018-05-27 22:55 | NUR ---
Radiology came to get the patient to take down for the VQ scan, pt transported via wheelchair. Patient returned to unit via wheelchair at 2330 following the VQ scan.
--- NOTE | 2018-05-27 23:22 | RAD ---
PORTABLE CHEST 1V History: UPPER CHEST PAIN RADIATING TOWARDS BACK, history of pulmonary embolism Comparison: October 24, 2016 Findings: AP portable view of the chest is submitted. There is no infiltrate, pleural fluid, pneumothorax. Heart size is stable, within normal limits. Impression: 1. No acute radiographic abnormality is identified. Electronically signed by: Tj Gamino MD (05/27/2018 11:19 PM) [facility]
--- NOTE | 2018-05-27 23:39 | RAD ---
Ventilation perfusion exam History: Chest pain, history of pulmonary embolism in 2017 Comparison: Chest radiograph the same day, no previous ventilation/perfusion exam available Findings: Ventilation perfusion examination was performed. Ventilation images were acquired after the patient inhaled 11.2 mCi of xenon-133 gas. Perfusion images were acquired after the patient was injected with 6.6 mCi of technetium 99m MAA. No appreciable mismatched perfusion defect is identified on the anterior posterior projections. However as seen on the oblique images, there is a perfusion defect of the right lower lobe, no corresponding abnormality on chest radiograph. Impression: 1. There is a perfusion defect of the right lower lobe although no mismatched perfusion defect demonstrated on the anterior posterior projections, considered intermediate probability for pulmonary embolic disease. Electronically signed by: Tj Gamino MD (05/27/2018 11:37 PM) [facility]
[2018-05-28 02:50] VITALS: BP 127/82
[2018-05-28] MEDS ORDERED: potassium PO (06:38)
[2018-05-28] MEDS ORDERED: voltaren (06:40)
[2018-05-28 07:00] VITALS: BP 144/93
[2018-05-28 07:17] LABS: BASO % 0 % (0-3); EOS % 0 % (0-3); HEMATOCRIT 45.7 % (39.0-53.0); HEMOGLOBIN 15.4 g/dL (13.0-17.5); LYMPH # 0.8 x10^3/uL (1.0-4.8); LYMPH % 8 % (24-48); MEAN CORPUSCULAR HEMOGLOBIN 30 pg (25-35); MEAN CORPUSCULAR HGB CONC 34 g/dL (31-37); MEAN CORPUSCULAR VOLUME 89 fL (79-100); MONO # 0.1 x10^3/uL (0.0-1.1); MONO % 1 % (0-9); NEUT # 8.6 x10^3uL (1.8-7.7); NEUT % 91 % (31-73); PLATELET COUNT 180 x10^3/uL (140-400); RED BLOOD COUNT 5.16 x10^6/uL (4.30-5.70); RED CELL DISTRIBUTION WIDTH 13.5 % (11.5-14.5); WHITE BLOOD COUNT 9.5 x10^3/uL (4.0-11.0)
[2018-05-28 07:30] LABS: CALCIUM 9.2 mg/dL (8.5-10.1); GFR 74.1; POTASSIUM 3.9 mmol/L (3.5-5.1)
[2018-05-28 08:07] LABS: % BANDS 4 % (0-9); % LYMPHS 5 % (24-48); % MONOS 1 % (0-10); % SEGS 90 % (35-66)
[2018-05-28 08:08] LABS: PLT ESTIMATE ADEQUATE (ADEQUATE); TEAR DROP CELLS OCC
--- NOTE | 2018-05-28 08:21 | PDOC1 ---
H & P. HPI: Mr. Wright is a 67-year-old male with past medical history of hypertension, BPH, GERD with history of Lema's esophagus, history of PE, sleep apnea, who presented to the emergency room yesterday for chest pain, shortness of breath, that he notes is similar to his previous PE. He was unable to have a CT angiogram to to contrast dye allergy, which caused hives with pretreatment last time was performed, though was much less significant than without pretreatment. He was admitted for further evaluation and for VQ scan to further evaluate risk for PE. VQ scan was done overnight and showed intermediate risk for PE. Labs and EKG were otherwise unremarkable apart from very mild leukocytosis with left shift, which has improved on morning labs. He is feeling well this morning. Denies shortness of breath currently. Notes 1/10 chest pain across anterior chest, significantly improved from previous. ROS: Constitutional: Denies fever, fatigue, chills HEENT: Denies sore throat, vision changes Cardio: Admits chest pain, dyspnea with exertion; denies syncope, palpitations, edema Pulmonary: Denies shortness of breath, cough, wheezing GI: Denies nausea, vomiting, diarrhea, constipation Skin: Denies new lesions Neuro: Denies weakness, paresthesias PMH: As above. FAMILY HX: Father passed we with diabetes, heart disease. Mother had cancer. Brother had DVT recently as well. SOCIAL HX: Nonsmoker, social drinker, denies recreational drug use. . SURGICAL HX: s/p TURP in 2014, appendectomy MEDS: Reviewed and reconciled ALLERGIES: Reviewed PE: Alert, oriented, no acute distress EOMI, sclera non-icteric Neck supple RRR, no murmur CTAB, no wheezes, crackles or rhonchi No edema, cyanosis. Normal capillary refill. 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 Has been on Xarelto previously, was affordable Pulmonology consulted Pt is due for colonoscopy, denies other risk factors for clot. Obtain hypercoagulable work up. Possible dc later today pending Pulm consult and affordablility of Xarelto. AR FRAGA MD May 28, 2018 08:21
--- NOTE | 2018-05-28 08:31 | EKG ---
[facility] [address] [place] [address] Test Date: 2018-05-27 Test Time: 19:38:45 Pat Name: MARCELO ZARCO Department: Room: 211 1 Gender: M Mechanical System Technician: : [id number] Requested By: GERSON CUELLAR Order Number: [id number] Reading MD: Adam Chin MD Measurements Intervals [place] Rate: 88 P: 123 NC: 158 QRS: 36 QRSD: 88 T: 43 QT: 370 QTc: 451 Interpretive Statements SINUS RHYTHM Electronically Signed On 05-28-2018 10:11:51 DEVELOPMENT MGR by Adam Chin MD
[2018-05-28] MEDS ORDERED: DICL100G18 TP (09:24)
[2018-05-28] MEDS ORDERED: MAGNESIUM OXIDE 400 MG TABLET PO SCH (10:00)
[2018-05-28] MEDS ORDERED: amLODIPine BESYLATE 5 MG TABLET PO SCH (10:00)
[2018-05-28] MEDS ORDERED: PANTOPRAZOLE 40 MG TABLET.DR. PO SCH (10:00)
[2018-05-28] MEDS ORDERED: TAMSULOSIN 0.4 MG CAP.ER.24H. PO SCH (10:00)
[2018-05-28] MEDS ORDERED: hydroCHLOROthiazide 12.5 MG CAPSULE PO SCH (10:00)
[2018-05-28] MEDS ORDERED: DOCUSATE SODIUM 100 MG CAPSULE. PO SCH (10:00)
[2018-05-28] MEDS ORDERED: LISINOPRIL 20 MG TABLET PO SCH (10:00)
[2018-05-28 11:00] VITALS: BP 157/89
--- NOTE | 2018-05-28 11:06 | NUR ---
Patient requested to take his magnesium and pantoprazole at lunch time.
--- NOTE | 2018-05-28 12:10 | NUR ---
SS following for discharge planning. SS reviewed pt chart. Pt is from home with spouse and is currently on room air. No discharge needs noted at this time. SS will continue to follow for pending discharge needs.
--- NOTE | 2018-05-28 14:02 | PDOC ---
PULMONARY PROGRESS NOTES Vitals Vital Signs Date Time Temp Pulse Resp B/P (MAP) Pulse Ox O2 Delivery O2 Flow Rate FiO2 05/28/18 11:00 97.8 80 18 157/89 (111) 96 Room Air 97.8 General: Alert, No acute distress Lungs: Clear Cardiovascular: S1 Abdomen: Soft Extremities: No Edema Labs Laboratory Tests Test 05/27/18 19:57 05/28/18 00:50 05/28/18 07:00 White Blood Count 12.8 x10^3/uL (4.0-11.0) 9.5 x10^3/uL (4.0-11.0) Red Blood Count 5.09 x10^6/uL (4.30-5.70) 5.16 x10^6/uL (4.30-5.70) Hemoglobin 15.3 g/dL (13.0-17.5) 15.4 g/dL (13.0-17.5) Hematocrit 45.3 % (39.0-53.0) 45.7 % (39.0-53.0) Mean Corpuscular Volume 89 fL (79-100) 89 fL (79-100) Mean Corpuscular Hemoglobin 30 pg (25-35) 30 pg (25-35) Mean Corpuscular Hemoglobin Concent 34 g/dL (31-37) 34 g/dL (31-37) Red Cell Distribution Width 13.3 % (11.5-14.5) 13.5 % (11.5-14.5) Platelet Count 190 x10^3/uL (140-400) 180 x10^3/uL (140-400) Neutrophils (%) (Auto) 77 % (31-73) 91 % (31-73) Lymphocytes (%) (Auto) 16 % (24-48) 8 % (24-48) Monocytes (%) (Auto) 6 % (0-9) 1 % (0-9) Eosinophils (%) (Auto) 1 % (0-3) 0 % (0-3) Basophils (%) (Auto) 1 % (0-3) 0 % (0-3) Neutrophils # (Auto) 9.8 x10^3uL (1.8-7.7) 8.6 x10^3uL (1.8-7.7) Lymphocytes # (Auto) 2.0 x10^3/uL (1.0-4.8) 0.8 x10^3/uL (1.0-4.8) Monocytes # (Auto) 0.7 x10^3/uL (0.0-1.1) 0.1 x10^3/uL (0.0-1.1) Eosinophils # (Auto) 0.1 x10^3/uL (0.0-0.7) 0.0 x10^3/uL (0.0-0.7) Basophils # (Auto) 0.1 x10^3/uL (0.0-0.2) 0.0 x10^3/uL (0.0-0.2) Prothrombin Time 14.2 SEC (11.7-14.0) Prothromb Time International Ratio 1.1 (0.8-1.1) Sodium Level 142 mmol/L (136-145) 144 mmol/L (136-145) Potassium Level 3.6 mmol/L (3.5-5.1) 3.9 mmol/L (3.5-5.1) Chloride Level 101 mmol/L (98-107) 106 mmol/L (98-107) Carbon Dioxide Level 29 mmol/L (21-32) 27 mmol/L (21-32) Anion Gap 12 (6-14) 11 (6-14) Blood Urea Nitrogen 17 mg/dL (8-26) 21 mg/dL (8-26) Creatinine 1.1 mg/dL (0.7-1.3) 1.0 mg/dL (0.7-1.3) Estimated GFR (Cockcroft-Gault) 66.4 74.1 BUN/Creatinine Ratio 15 (6-20) Glucose Level 104 mg/dL (70-99) 156 mg/dL (70-99) Calcium Level 9.2 mg/dL (8.5-10.1) 9.2 mg/dL (8.5-10.1) Magnesium Level 2.0 mg/dL (1.8-2.4) Total Bilirubin 0.9 mg/dL (0.2-1.0) Aspartate Amino Transf (AST/SGOT) 19 U/L (15-37) Alanine Aminotransferase (ALT/SGPT) 21 U/L (16-63) Alkaline Phosphatase 91 U/L (46-116) Creatine Kinase 144 U/L (39-308) Creatine Kinase MB (Mass) 0.8 ng/mL (0.0-3.6) Creatine Kinase MB Relative Index 0.6 % (0-4) Troponin I Quantitative < 0.017 ng/mL (0.000-0.055) < 0.017 ng/mL (0.000-0.055) < 0.017 ng/mL (0.000-0.055) GC-Isp-N-Type Natriuretic Peptide 30 pg/mL (0-124) Total Protein 8.1 g/dL (6.4-8.2) Albumin 4.2 g/dL (3.4-5.0) Albumin/Globulin Ratio 1.1 (1.0-1.7) Segmented Neutrophils % 90 % (35-66) Band Neutrophils % 4 % (0-9) Lymphocytes % 5 % (24-48) Monocytes % 1 % (0-10) Platelet Estimate Adequate (ADEQUATE) Tear Drop Cells Occ Laboratory Tests Test 05/27/18 19:57 05/28/18 00:50 05/28/18 07:00 White Blood Count 12.8 x10^3/uL (4.0-11.0) 9.5 x10^3/uL (4.0-11.0) Red Blood Count 5.09 x10^6/uL (4.30-5.70) 5.16 x10^6/uL (4.30-5.70) Hemoglobin 15.3 g/dL (13.0-17.5) 15.4 g/dL (13.0-17.5) Hematocrit 45.3 % (39.0-53.0) 45.7 % (39.0-53.0) Mean Corpuscular Volume 89 fL (79-100) 89 fL (79-100) Mean Corpuscular Hemoglobin 30 pg (25-35) 30 pg (25-35) Mean Corpuscular Hemoglobin Concent 34 g/dL (31-37) 34 g/dL (31-37) Red Cell Distribution Width 13.3 % (11.5-14.5) 13.5 % (11.5-14.5) Platelet Count 190 x10^3/uL (140-400) 180 x10^3/uL (140-400) Neutrophils (%) (Auto) 77 % (31-73) 91 % (31-73) Lymphocytes (%) (Auto) 16 % (24-48) 8 % (24-48) Monocytes (%) (Auto) 6 % (0-9) 1 % (0-9) Eosinophils (%) (Auto) 1 % (0-3) 0 % (0-3) Basophils (%) (Auto) 1 % (0-3) 0 % (0-3) Neutrophils # (Auto) 9.8 x10^3uL (1.8-7.7) 8.6 x10^3uL (1.8-7.7) Lymphocytes # (Auto) 2.0 x10^3/uL (1.0-4.8) 0.8 x10^3/uL (1.0-4.8) Monocytes # (Auto) 0.7 x10^3/uL (0.0-1.1) 0.1 x10^3/uL (0.0-1.1) Eosinophils # (Auto) 0.1 x10^3/uL (0.0-0.7) 0.0 x10^3/uL (0.0-0.7) Basophils # (Auto) 0.1 x10^3/uL (0.0-0.2) 0.0 x10^3/uL (0.0-0.2) Prothrombin Time 14.2 SEC (11.7-14.0) Prothromb Time International Ratio 1.1 (0.8-1.1) Sodium Level 142 mmol/L (136-145) 144 mmol/L (136-145) Potassium Level 3.6 mmol/L (3.5-5.1) 3.9 mmol/L (3.5-5.1) Chloride Level 101 mmol/L (98-107) 106 mmol/L (98-107) Carbon Dioxide Level 29 mmol/L (21-32) 27 mmol/L (21-32) Anion Gap 12 (6-14) 11 (6-14) Blood Urea Nitrogen 17 mg/dL (8-26) 21 mg/dL (8-26) Creatinine 1.1 mg/dL (0.7-1.3) 1.0 mg/dL (0.7-1.3) Estimated GFR (Cockcroft-Gault) 66.4 74.1 BUN/Creatinine Ratio 15 (6-20) Glucose Level 104 mg/dL (70-99) 156 mg/dL (70-99) Calcium Level 9.2 mg/dL (8.5-10.1) 9.2 mg/dL (8.5-10.1) Magnesium Level 2.0 mg/dL (1.8-2.4) Total Bilirubin 0.9 mg/dL (0.2-1.0) Aspartate Amino Transf (AST/SGOT) 19 U/L (15-37) Alanine Aminotransferase (ALT/SGPT) 21 U/L (16-63) Alkaline Phosphatase 91 U/L (46-116) Creatine Kinase 144 U/L (39-308) Creatine Kinase MB (Mass) 0.8 ng/mL (0.0-3.6) Creatine Kinase MB Relative Index 0.6 % (0-4) Troponin I Quantitative < 0.017 ng/mL (0.000-0.055) < 0.017 ng/mL (0.000-0.055) < 0.017 ng/mL (0.000-0.055) HB-Rjq-K-Type Natriuretic Peptide 30 pg/mL (0-124) Total Protein 8.1 g/dL (6.4-8.2) Albumin 4.2 g/dL (3.4-5.0) Albumin/Globulin Ratio 1.1 (1.0-1.7) Segmented Neutrophils % 90 % (35-66) Band Neutrophils % 4 % (0-9) Lymphocytes % 5 % (24-48) Monocytes % 1 % (0-10) Platelet Estimate Adequate (ADEQUATE) Tear Drop Cells Occ Medications Active Scripts Medications Dose Route/Sig Max Daily Dose Days Date Category Voltaren (Diclofenac Sodium) 100 Gm Gel..gram. 100 Gm TP PRN TID PRN 05/28/18 Reported [voltaren] PRN PRN 05/28/18 Reported [potassium] 500 Mg PO DAILY 05/28/18 Reported Amlodipine Besylate 5 Mg Tablet 5 Mg PO DAILY 01/28/17 Reported Docusate Sodium 100 Mg Capsule 1 Cap PO DAILY 06/29/16 Reported Lisinopril-Hctz 20-12.5 Mg Tab (Lisinopril/Hydrochlorothiazide) 1 Each Tablet 1 Tab PO DAILY 06/29/16 Reported Omeprazole 40 Mg Capsule.dr 40 Mg PO BID 06/29/16 Reported Centrum Silver Tablet (Multivits-Min/Fa/Lycopene/Lut) 1 Each Tablet 1 Each PO 06/29/16 Reported Magnesium Oxide 400 Mg Tablet 1 Tab PO DAILY 06/29/16 Reported Flomax (Tamsulosin Hcl) 0.4 Mg Cap.er.24h 1 Cap PO DAILY 10/27/15 Reported Impression . DICTATED WILL CONFIRM WITH CT CHEST PRIOR TO COMMITING PT TO LIFETIME ANTICOAGULATION FOR PRESUMPTIVE SECOND UNPROVOKED PE. SEE ORDERS THANKS GELACIO PEREZ MD May 28, 2018 14:02
[2018-05-28] MEDS ORDERED: methylPREDNISolone SOD SUCC PF 125 MG/2 ML VIAL. IV ONE (14:15)
[2018-05-28] MEDS ORDERED: diphenhydrAMINE 50 MG/ML VIAL IVP ONE (14:15)
[2018-05-28] MEDS ORDERED: CONTRAST GIVEN. MC PRN (14:30)
[2018-05-28] MEDS ORDERED: IOHEXOL 350 MG/ML 100 ML VIAL. IV ONE (15:00)
--- NOTE | 2018-05-28 15:17 | RAD ---
EXAM: CT chest with contrast - pulmonary embolus protocol CLINICAL HISTORY: Possible pulmonary embolus COMPARISON: VQ scan 05/27/2018, CT 10/24/2016 TECHNIQUE: CT of the chest following the administration of intravenous contrast during the pulmonary arterial phase. Axial, coronal and sagittal reformatted images were generated including MIP images. ---PQRS compliance statement - One or more of the following individualized dose reduction techniques were utilized for this study: 1. Automated exposure control 2. Adjustment of the mA and/or kV according to patient size 3. Use of iterative reconstruction technique--- FINDINGS: CHEST: Diagnostic quality: Suboptimal. Pulmonary emboli: No pulmonary emboli to the level of the segmental branches. More peripheral vessels are not well assessed. Right heart strain: None Pulmonary arteries: Normal in caliber. No pleural effusion or pneumothorax. The heart is not enlarged. No pericardial effusion. No axillary lymphadenopathy. No mediastinal or hilar lymphadenopathy. Subpleural linear opacities in the right greater than left lower lobes likely scarring/atelectasis. No lobar consolidation. No suspicious lung nodule or mass is seen. Visualized Upper abdomen: Small hiatal hernia. Bones: Degenerative changes of the spine are seen. IMPRESSION: 1. No pulmonary emboli to the level of the segmental branches. More peripheral vessels are not well assessed based on contrast bolus timing. Electronically signed by: Sly Medellin MD (05/28/2018 3:14 PM) [facility]
--- NOTE | 2018-05-28 15:59 | NUR ---
Discharge Note: MARCELO ZARCO Discharge instructions and discharge home medications reviewed with Patient and a copy given. All questions have been answered and understanding verbalized.
--- NOTE | 2018-05-29 00:21 | CONS ---
DATE OF CONSULTATION: 05/28/2018 ATTENDING PHYSICIAN: Jaylyn Raya M.D. REASON FOR CONSULTATION: The patient seen in Pulmonary consultation at the request of Dr. Raya for increasing shortness of air and chest discomfort. HISTORY OF PRESENT ILLNESS: The patient is a 67-year old who had a first time unprovoked DVT and PE back in June of 2016. He was treated and taken off of anticoagulation. A repeat scan revealed resolution of his previous pulmonary infarct and emboli. The patient presented as a consequence of experiencing similar type of discomfort, but not pleuritic in nature, shortness of breath and chest discomfort. He underwent a VQ scan, which was read out as indeterminant. His venous Dopplers were negative. Upon questioning, once again the patient emphasized that this discomfort in the chest was very similar to his previous PE. He has had some allergies to contrast dye in the past, which was resolved and mitigated with Benadryl without Solu-Medrol. He has had several CTs for PE protocol, premedicated with Benadryl with no significant reaction. PAST MEDICAL HISTORY: 1. Unprovoked PE in June of 2016. 2. Gastroesophageal reflux, Lema's esophagus. 3. Hypertension. 4. Migraines. 5. He has a history of obstructive sleep apnea, utilizing a BiPAP at home. PAST SURGICAL HISTORY: Status post TURP and appendectomy. ALLERGIES: To IV CONTRAST as indicated above and in addition, HYDROCODONE. REVIEW OF SYSTEMS: As indicated above, otherwise the 10-point system was reviewed and negative. CURRENT MEDICATION: List was reviewed. MEDICATIONS: List was reviewed. PHYSICAL EXAMINATION: GENERAL: The patient was in no respiratory distress. VITAL SIGNS: Stable. O2 saturation was greater than 92%. HEENT: Eyes, the sclerae were nonicteric. NECK: Jugular venous distention was not elevated. No lymphadenopathy. CHEST: Full expansion. LUNGS: Adequate airway flow with no wheezes. CARDIOVASCULAR: Regular rate and rhythm with S1 an S2. No S3. ABDOMEN: Soft, nontender and nondistended. EXTREMITIES: No clubbing, cyanosis or edema. NEUROLOGICAL: The patient was awake, alert and following commands. A detailed neuro exam was not performed. LABORATORY DATA: Labs were reviewed. White count was normal. Hemoglobin and hematocrit were noted. Electrolytes were noted. BUN and creatinine were normal. Troponin was not elevated. BNP was not elevated. RADIOLOGICAL DATA: Chest x-ray reviewed. There was no acute infiltrates. V/Q scan revealed a right lower lobe unmatched perfusion defect. IMPRESSION: 1. Chest pain similar to previous unprovoked pulmonary embolism. 2. Dyspnea, possibly related to above. 3. Obstructive sleep apnea. 4. Allergic reaction to contrast dye. 5. Other comorbidities as indicated above. PLAN: We will proceed with CT angiogram and premedication with Benadryl and Solu-Medrol, I do not want to commit the patient to lifetime anticoagulation based on the current V/Q scan. We will make further recommendations depending on the CT angiogram results. I do appreciate the privilege in participating in Rubens's care. GELACIO PEREZ MD DR: JIL/leah JOB#: [id number] / [id number]
== END 2018-05-28 16:00 | disposition home or self-care (01) | DRG 206 ==
LOC: ER 19:32 → 2 NORTH 21:30
PROVIDERS: ADMIT Family Medicine; ATTEND Family Medicine
DX: M94.0 Chondrocostal junction syndrome [Tietze] (principal); K21.9 Gastro-esophageal reflux disease without esophagitis; G47.33 Obstructive sleep apnea (adult) (pediatric); I10 Essential (primary) hypertension; K22.70 Barrett's esophagus without dysplasia; G43.909 Migraine, unspecified, not intractable, without status migrainosus; N40.0 Benign prostatic hyperplasia without lower urinary tract symptoms; M19.90 Unspecified osteoarthritis, unspecified site; Z86.711 Personal history of pulmonary embolism; Z90.49 Acquired absence of other specified parts of digestive tract; Z90.79 Acquired absence of other genital organ(s); Z91.041 Radiographic dye allergy status; Z88.8 Allergy status to other drugs, medicaments and biological substances; Y92.89 Other specified places as the place of occurrence of the external cause
CPT/HCPCS: 36415; 71045; 71275; 78582; 80048; 80053; 82553; 83735; 83880; 84484; 85007; 85025; 85379; 85610; 93005; 93970; 96361; 96372; 96374; 96375; A9540; A9558; J1200; J1650; J2930; J7030; Q9967; 99285-25

== ENCOUNTER → 2018-08-02 | Day surgery (SDC) | payer OTHER ==
[~2018-08-02] MED LIST changes: +DICL100G18 TP; +IV RINGERS,LACTATED 1000ML 1,000 ML IV SCH; +LIDOCAINE 1% PF 2 ML VIAL. ID PRN; +MIDAZOLAM HCL/PF 2 MG/2 ML VIAL. IV PRN; +PROPOFOL 20 ML IV ONE; +fentaNYL PF VIAL 100 MCG/2 ML VIAL IV PRN; +potassium PO; +voltaren
[2018-08-02 07:51] VITALS: BP 135/80
--- NOTE | 2018-08-05 14:06 | PATHOLOGY ---
[facility] Accession Number: [id number] . 01 Material submitted: . esophagus - DISTAL ESOPHAGUS. Modifiers: distal . 01 Clinical history: . Lema's/history of polyps . 02 Diagnosis: Esophageal biopsies, distal esophagus: - Segments of hyperplastic squamous esophageal mucosa consistent with reflux esophagitis. (JPM:teagan; 08/05/2018) QMS/08/05/2018 . 02 Comment: Sections of the distal esophageal biopsy reveal segments of tangentially oriented hyperplastic squamous esophageal mucosa. The findings are consistent with reflux esophagitis. There is no evidence of Lema's change, dysplasia, or malignancy. (JPM:teagan; 08/05/2018) . 02 Electronically signed: . Victor M Preston MD, Pathologist NPI- [id number] . 01 Gross description: . The specimen is received in formalin, labeled "Rubens Wright, distal esophagus", are several mccartney-taveras irregular fragments of soft tissue measuring 0.7 x 0.4 x 0.1 cm in aggregate, entirely submitted in A1. ([facility]; 08/02/2018) . SHS/SHS . 02 Pathologist provided ICD-10: K21.0 . 02 CPT . 639341 Specimen Comment: A courtesy copy of this report has been sent to Specimen Comment: [phone]. Specimen Comment: Report sent to DR SORIANO Performed at: [address] [place] [id number] [facility] [address], [place] [id number] MD Evgeny Nance MD Phone: [phone] Performed at: [address] [facility] [address] [place], [place] [id number] MD Victor M Preston MD Phone: [phone]
== END | disposition home or self-care (01) ==
LOC: ENDOS 05:54
PROVIDERS: ATTEND Internal Medicine Gastroenterology
DX: Z12.11 Encounter for screening for malignant neoplasm of colon (principal); K22.70 Barrett's esophagus without dysplasia; Z86.010 Personal history of colon polyps; K57.30 Diverticulosis of large intestine without perforation or abscess without bleeding; K64.0 First degree hemorrhoids; I10 Essential (primary) hypertension; K21.0 Gastro-esophageal reflux disease with esophagitis; G47.30 Sleep apnea, unspecified; Z83.3 Family history of diabetes mellitus; Z82.49 Family history of ischemic heart disease and other diseases of the circulatory system; Z80.41 Family history of malignant neoplasm of ovary; Z72.89 Other problems related to lifestyle; Z98.52 Vasectomy status; Z90.49 Acquired absence of other specified parts of digestive tract; Z98.890 Other specified postprocedural states; Z91.041 Radiographic dye allergy status
CPT/HCPCS: 43239; 45378; 88305; J2704

== ENCOUNTER → 2021-01-17 | Outpatient (CLI) | payer MEDICARE ==
[2018-08-02 07:51] VITALS: BP 135/80
[~2021-01-17] MED LIST changes: +AMLO-186 PO; -AMLO5TAB10 PO; +CYCL10TA19 PO; -DICL100G18 TP; +DICL100G54 TP; +FINA5TAB4 PO; +IBUP200T58 PO; -IV RINGERS,LACTATED 1000ML 1,000 ML IV SCH; -LIDOCAINE 1% PF 2 ML VIAL. ID PRN; -LISI1TAB3 PO; +LISI1TAB35 PO; +LISI1TAB37 PO; -LISI1TAB5 PO; -MAGN400T3 PO; +MAGN400T48 PO; +MELO15TA6 PO; -MIDAZOLAM HCL/PF 2 MG/2 ML VIAL. IV PRN; +NIFE-11 PO; -NIFE30TA38 PO; -OMEP40CA5 PO; +OMEP40CA7 PO; +OXYC5CAP PO; -PROPOFOL 20 ML IV ONE; +WARF-31 PO; -fentaNYL PF VIAL 100 MCG/2 ML VIAL IV PRN
[2021-01-17 10:10] LABS: ALBUMIN 4.1 g/dL (3.4-5.0); CALCIUM 9.2 mg/dL (8.5-10.1); CREATININE 0.8 mg/dL (0.7-1.3); POTASSIUM 3.2 mmol/L (3.5-5.1)
[2021-01-17 10:30] LABS: BASO # 0.1 x10^3/uL (0.0-0.2); BASO % 1 % (0-3); EOS # 0.1 x10^3/uL (0.0-0.7); EOS % 2 % (0-3); HEMATOCRIT 45.3 % (39.0-53.0); HEMOGLOBIN 15.6 g/dL (13.0-17.5); LYMPH # 1.8 x10^3/uL (1.0-4.8); LYMPH % 30 % (24-48); MEAN CORPUSCULAR HEMOGLOBIN 30 pg (25-35); MEAN CORPUSCULAR HGB CONC 35 g/dL (31-37); MEAN CORPUSCULAR VOLUME 88 fL (79-100); MONO # 0.4 x10^3/uL (0.0-1.1); MONO % 7 % (0-9); NEUT # 3.7 x10^3/uL (1.8-7.7); NEUT % 61 % (31-73); PLATELET COUNT 228 x10^3/uL (140-400); RED BLOOD COUNT 5.16 x10^6/uL (4.30-5.70); RED CELL DISTRIBUTION WIDTH 13.3 % (11.5-14.5); WHITE BLOOD COUNT 6.1 x10^3/uL (4.0-11.0)
[2021-01-17 10:58] LABS: PROTHROMBIN TIME PATIENT 12.7 SEC (11.7-14.0)
--- NOTE | 2021-01-17 12:43 | EKG ---
[facility] [address] [place] [address] Test Date: 2021-01-17 Test Time: 12:36:00 Pat Name: MARCELO ZARCO Department: Room: Gender: Insurance Loss Assessor: : 1950 Requested By: JOSE ANTONIO ALCARAZ Order Number: [id number] Reading MD: Beltran Castillo Measurements Intervals [place] Rate: 72 P: 56 OK: 188 QRS: 39 QRSD: 98 T: 31 QT: 388 QTc: 426 Interpretive Statements SINUS RHYTHM NORMAL ECG RI6.02 Electronically Signed On 01-19-2021 15:52:12 CDT by Beltran aCstillo
--- NOTE | 2021-01-17 13:15 | RAD ---
EXAM: Chest, 2 views. HISTORY: Hypertension. COMPARISON: 05/27/2018. FINDINGS: 2 views the chest are obtained. There is no infiltrate, pleural effusion or pneumothorax. T he heart is normal in size. IMPRESSION: No acute pulmonary finding. Electronically signed by: Yumiko León MD (01/17/2021 1:12 PM) [id number]
[2021-01-18 01:15] LABS: HEMOGLOBIN A1C 5.7 % (4.8-5.6)
== END ==
LOC: SURGPAT 12:51
PROVIDERS: ATTEND Orthopaedic Surgery
DX: Z01.818 Encounter for other preprocedural examination (principal); M17.12 Unilateral primary osteoarthritis, left knee
CPT/HCPCS: 36415; 71046; 80048; 82040; 82306; 83036; 85025; 85610; 85651; 85730; 87641; 93005

== ENCOUNTER 2021-02-01 05:58 | Observation (INO) | payer MEDICARE ==
[2021-01-27 12:30] VITALS: BP 143/95
[2021-02-01] VITALS (10 sets, daily range): BP systolic 104–155; BP diastolic 76–100
[~2021-02-01] VITALS: Ht 182.9 cm; Wt 112.0 kg
[~2021-02-01 05:58] MED LIST changes: -CYCL10TA19 PO; -MELO15TA6 PO; -OXYC5CAP PO; -WARF-31 PO
[2021-02-01] MEDS ORDERED: IV RINGERS,LACTATED 1000ML 1,000 ML IV SCH (06:00)
[2021-02-01] MEDS ORDERED: fentaNYL PF VIAL 100 MCG/2 ML VIAL IVP PRN ×3 (06:00→07:30)
[2021-02-01] MEDS ORDERED: PROCHLORPERAZINE 10 MG/2 ML VIAL. IVP PRN (06:00)
[2021-02-01] MEDS ORDERED: MELOXICAM 7.5 MG TABLET PO PRN (06:00)
[2021-02-01] MEDS ORDERED: ACETAMINOPHEN 500 MG TABLET PO PRN (06:00)
[2021-02-01] MEDS ORDERED: HYDROmorphone 2 MG/ML VIAL IVP PRN (06:00)
[2021-02-01] MEDS ORDERED: GABAPENTIN 300 MG CAPSULE. PO PRN (06:00)
[2021-02-01] MEDS ORDERED: MELO15TA6 PO (06:26)
[2021-02-01] MEDS ORDERED: WARF-31 PO (06:53)
[2021-02-01] MEDS ORDERED: PROPOFOL 50 ML IV ONE (07:05)
[2021-02-01] MEDS ORDERED: LIDOCAINE 2% PF 5 ML VIAL. ONE (07:05)
[2021-02-01] MEDS ORDERED: TRANEXAMIC ACID in NS IVPB 50 ML ONE (07:08)
[2021-02-01] MEDS ORDERED: fentaNYL PF VIAL 100 MCG/2 ML VIAL ONE (07:14)
[2021-02-01] MEDS ORDERED: MIDAZOLAM HCL/PF 2 MG/2 ML VIAL. ONE (07:15)
[2021-02-01] MEDS ORDERED: PROCHLORPERAZINE 5 MG TABLET. PO PRN (07:30)
[2021-02-01] MEDS ORDERED: diphenhydrAMINE 50 MG/ML VIAL IVP PRN (07:30)
[2021-02-01] MEDS ORDERED: CALCIUM CARBONATE 500 MG TAB.CHEW PO PRN (07:30)
[2021-02-01] MEDS ORDERED: ZOLPIDEM 5 MG TABLET. PO PRN (07:30)
[2021-02-01] MEDS: IV NORMAL SALINE 1000ML BAG 1,000 ML IV SCH (07:30)
[2021-02-01] MEDS ORDERED: MORPHINE SULFATE 2 MG/ML INJ. IVP PRN (07:30)
[2021-02-01] MEDS ORDERED: DEXTROSE 50% 25 GM / 50ML DISP.SYRIN. IV PRN (07:30)
[2021-02-01] MEDS ORDERED: 0.9 % SODIUM CHLORIDE 10 ML DISP.SYRIN. IV PRN (07:30)
[2021-02-01 07:40] LABS: PROTHROMBIN TIME PATIENT 13.4 SEC (11.7-14.0)
--- NOTE | 2021-02-01 07:44 | PREOP HP ---
DATE OF SERVICE: 02/01/2021 PRINCIPAL DIAGNOSIS: Degenerative joint disease of the left knee. HISTORY OF PRESENT ILLNESS: The patient has had left greater than right knee pain due to bilateral knee osteoarthritis for many years. He had previously had a few months of good relief of viscosupplementation injections in the past, but most recently received only a little over 3 months with pain returning, becoming more severe and severely affecting his activities of daily living. PAST MEDICAL HISTORY: Significant for history of deep venous thrombosis, hypertension and acid reflux. PAST SURGICAL HISTORY: Previous knee surgery, transurethral resection of prostate and appendectomy. FAMILY HISTORY: Noncontributory. SOCIAL HISTORY: Denies smoking, alcohol or drug use. MEDICATIONS: Include amlodipine, omeprazole, lisinopril, finasteride, nifedipine and most recently potassium. ALLERGIES: He has no known drug allergies. REVIEW OF SYSTEMS: Taking a potassium per Dr. Pardo, his primary care physician over the past few days because of the low potassium level on his preop labs. He has had no symptoms of any chest pain, shortness of breath, palpitations, fever, chills, focal weakness, numbness, tingling, or other constitutional symptoms. PHYSICAL EXAMINATION: GENERAL: Pleasant, cooperative 70-year-old male, alert and oriented, no acute distress. VITAL SIGNS: Blood pressure 153/90, pulse 77, temperature 97.8, 98% saturation on room air, respirations 18. HEENT: Atraumatic, normocephalic. HEART: Regular rate and rhythm. LUNGS: Clear to auscultation bilaterally. ABDOMEN: Benign. EXTREMITIES: Examination of the left knee reveals a bit more varus than the right, medial joint line tenderness. No gross ligamentous instability. He has moderate patellofemoral crepitus. Normal alignment, stability, bilateral hips and ankles. He has intact motor function, distal pulses, sensation, reflexes, skin in both lower extremities throughout. He does have a slight flexion contracture with range of motion about 5-125 degrees. DIAGNOSTIC DATA: X-rays show tricompartmental osteoarthrosis of the knees, worse than the medial compartments, severe in the left knee and moderate on the right. IMPRESSION: Bilateral primary osteoarthritis of knees, left much worse than right. TREATMENT PLAN: We had previously discussed ongoing nonoperative versus operative treatment options and talked through risks, benefits, postoperative course of total knee arthroplasty including the possibility of continued pain, infection, nerve or blood vessel damage, premature wear or loosening, medical or other anesthetic complications among others. All his questions were answered. He does wish to proceed with surgical evaluation and treatment which will include [facility] observation to follow. BONNIE DR: Loi TID: [id number]
[2021-02-01] MEDS ORDERED: KETOROLAC 30MG VIAL 30 MG, ROPIVacaine 0.5% PF 60 ML, EPINEPHrine 0.5 MG, MORPHINE SULF... INT ART ONE (08:00)
[2021-02-01] MEDS ORDERED: KETOROLAC 30MG VIAL 30 MG, ROPIVacaine 0.5% PF 60 ML, EPINEPHrine 0.5 MG in IV NORMAL S... INT ART ONE (08:00)
[2021-02-01] MEDS ORDERED: PROPOFOL 10 MG/ML (20ML) VIAL. IV ONE (08:54)
[2021-02-01] MEDS ORDERED: VANCOMYCIN 1 GM VIAL. TP ONE (09:22)
[2021-02-01] MEDS ORDERED: MORPHINE SULFATE 2 MG/ML INJ. ONE ×2 (09:56→10:12)
[2021-02-01] MEDS: MORPHINE SULFATE 2 MG/ML INJ. IVP PRN ×4 (09:59→10:30)
[2021-02-01] MEDS ORDERED: VANCOMYCIN 1 GM VIAL. ONE (10:16)
--- NOTE | 2021-02-01 10:53 | RAD ---
INDICATION: Reason: POST OP / Spl. Instructions: / History: COMPARISON: July 01, 2020 IMPRESSION: Left knee: 2 views obtained. Arthroplasty changes without periprosthetic fracture or dislocation. Air and edema within the soft tissues as typically seen postoperatively. Electronically signed by: Juan Pardo MD (02/01/2021 10:50 AM) [id number]
--- NOTE | 2021-02-01 11:14 | NUR ---
RECEIVED from recovery. at bedside. he is rating his pain a "6". He has good sensation, pulses and motion bilateral lower extremities. given coffee per request.
[2021-02-01] MEDS: SENNOSIDES/DOCUSATE 8.6/50MG TABLET. PO SCH (11:59)
[2021-02-01] MEDS: ONDANSETRON PF 4 MG/2 ML VIAL. IVP SCH ×2 (11:59→17:15)
[2021-02-01] MEDS: MULTIVITAMIN with MINERAL TABLET. PO SCH (11:59)
[2021-02-01] MEDS: oxyCODONE IR 5 MG TABLET PO PRN ×2 (12:00→20:04)
[2021-02-01] MEDS: ONDANSETRON ODT 4 MG TAB.RAPDIS. PO SCH ×2 (12:00→18:00)
--- NOTE | 2021-02-01 14:20 | NUR ---
Pharmacy Warfarin Dosing Note S: Pharmacy consulted to assist with anticoagulation therapy started 02/01/21 O: ZARCOMARCELO is a 70 year old M with TKA LABS: Last INR: 1.0 Last HGB: 15.6 Last HCT: 45.3 Last PLT: 228 Last dose of 5 mg given on 01/31/21 ACQUISITION LEAD Ongoing Drug Interactions: MOBIC A:INR of 1.0 is below desired range. Target range for this patient is: 1.6 - 2.5 P: Warfarin dose: 7.5 mg Today at 1600 Next INR due 02/02/21 AM Pharmacy anticoagulation service will continue to follow. LARY GLOVER RPH, 02/01/21 [id number]
[2021-02-01] MEDS ORDERED: WARFARIN 7.5 MG TABLET. PO ONE (16:00)
[2021-02-01] MEDS: FERROUS SULFATE 325 MG TABLET. PO SCH (17:14)
--- NOTE | 2021-02-01 18:55 | PDOC4 ---
Operative Note Operative Note Date of surgery: 01/31/2021 Preoperative diagnosis: Degenerative arthritis left knee Postoperative diagnosis: Same Operative procedure: Left total knee arthroplasty Surgeon: Olga Assist: Joaquin terrell Anesthesia: General Estimated blood loss: 30 cc Complications: None Specimens: Cartilage surfaces to pathology Operative indications: Please see my dictated preoperative history and physical for detailed operative indications and note that we had reviewed preoperatively risks benefits postoperative course of the surgery including the possibility of infection continued pain nerve or blood vessel damage premature wear or loosening instability medical or other anesthetic complications among others and he agrees to proceed with surgical evaluation and treatment having given informed consent Operative text: Patient was identified procedure verified patient placed in the supine position on the operating table. After adequate amounts of general anesthesia were administered the left lower extremity was prepped and draped in standard sterile fashion with a thigh tourniquet and after timeout was performed patient procedure identified and verified the left lower extremity was exsanguinated by Esmarch bandage tourniquet inflated to 300 mmHg and a midline incision was made followed by a medial parapatellar approach fat pad was excised and patella everted and the distal femur drilled to accommodate the intramedullary cutting guide which was set at 5 degrees with +2 mm distal cut to account for a 5 degree flexion contracture. A tibial cut was made using the extra medullary cutting guide aligned with the second toe and alignment verified. Balancing was confirmed with the drop zenon and noted in both flexion and extension, tibia was prepared with a size H persona trial component. Femur was sized at a size 12 and AP lateral chamfer cuts were made and ligament balancing carried out. Excellent stability with a 10 mm trial medial congruent articular surface spacer. Femoral lug holes were drilled and patella was not resurfaced. Excellent tracking was observed of the patella. Trial components were removed thorough irrigation carried out with normal saline solution and the following persona components were cemented in place with polymethylmethacrylate cement: A size H persona natural tibial component and size 12 standard right persona cruciate retaining femur. Excess cement was removed with a curette and a vitamin E medial congruent 10 mm height articular spacer was locked into place and the knee held into extension until cement was dry. Irrigation again carried out with dilute Betadine lavage and normal saline solution and 1 g vancomycin was placed in the knee joint. Retinaculum closed with #1 PDS suture in a running fashion subcutaneous closure with buried Vicryl sutures subcuticular closure with 3-0 strata fix Monocryl. A naomy dressing was placed. Toes were noted to be warm pink following deflation of the tourniquet patient was returned to recovery room in stable condition having tolerated procedure well. Joaquin terrell was present for the procedure and assisted in patient positioning prepping draping retraction closure dressings. JOSE ANTONIO ALCARAZ MD Feb 01, 2021 18:55
[2021-02-01] MEDS: PANTOPRAZOLE 40 MG TABLET.DR. PO SCH (20:04)
[2021-02-01] MEDS: FINASTERIDE 5 MG TABLET. PO SCH (20:04)
[2021-02-01] MEDS: TAMSULOSIN 0.4 MG CAP.ER.24H. PO SCH (20:04)
[2021-02-02] MEDS: ONDANSETRON ODT 4 MG TAB.RAPDIS. PO SCH
[2021-02-02] MEDS: oxyCODONE IR 5 MG TABLET PO PRN ×3 (02:03→13:54)
[2021-02-02 03:00] VITALS: BP 125/79
[2021-02-02] MEDS ORDERED: MAGNESIUM HYDROXIDE 2,400 MG/30 ML ORAL.SUSP. PO PRN (06:00)
[2021-02-02] MEDS: ONDANSETRON PF 4 MG/2 ML VIAL. IVP SCH ×2 (06:00)
[2021-02-02] MEDS ORDERED: traMADol 50 MG TABLET PO SCH (06:00)
[2021-02-02] MEDS: GABAPENTIN 100 MG CAPSULE. PO SCH ×3 (06:00→22:35)
[2021-02-02 06:55] VITALS: BP 120/75
--- NOTE | 2021-02-02 07:16 | NUR ---
In recliner. Back on RA.
[2021-02-02] MEDS: IV NORMAL SALINE 1000ML BAG 1,000 ML IV SCH (07:30)
[2021-02-02 07:56] LABS: HEMATOCRIT 37.8 % (39.0-53.0); HEMOGLOBIN 13.2 g/dL (13.0-17.5)
[2021-02-02 08:03] LABS: PROTHROMBIN TIME PATIENT 16.5 SEC (11.7-14.0)
[2021-02-02] MEDS: MAGNESIUM OXIDE 400 MG TABLET PO SCH (08:45)
[2021-02-02] MEDS: SENNOSIDES/DOCUSATE 8.6/50MG TABLET. PO SCH (08:45)
[2021-02-02] MEDS: DOCUSATE SODIUM 100 MG CAPSULE. PO SCH (08:45)
[2021-02-02] MEDS: MELOXICAM 7.5 MG TABLET PO SCH (08:46)
[2021-02-02] MEDS: TAMSULOSIN 0.4 MG CAP.ER.24H. PO SCH ×2 (08:46→21:27)
[2021-02-02] MEDS: MULTIVITAMIN with MINERAL TABLET. PO SCH (08:46)
[2021-02-02] MEDS: FERROUS SULFATE 325 MG TABLET. PO SCH ×2 (08:47→17:36)
[2021-02-02] MEDS: ACETAMINOPHEN 500 MG TABLET PO SCH ×3 (08:48→21:28)
[2021-02-02] MEDS: hydroCHLOROthiazide 12.5 MG CAPSULE PO SCH (08:48)
[2021-02-02 08:49] VITALS: BP 125/73
[2021-02-02] MEDS: LISINOPRIL 20 MG TABLET PO SCH (09:00)
--- NOTE | 2021-02-02 09:50 | NUR ---
Pharmacy Warfarin Dosing Note S:Pharmacy consulted to assist with anticoagulation therapy started 02/01/21 with target INR: 1.6 - 2.5 O:MARCELO ZARCO is a 70 year old M with TKA LABS: Last INR: 1.3 Last HGB: 13.2 Last HCT: 37.8 Last PLT: 228 Last dose of 7.5 mg given on 02/01/21 at 1714 Previous Regimen: Vitamin K given: N Drug Interaction Changes: Same Interacting Drug Ongoing Drug Interactions: A:INR of 1.3 is below desired range. Target range for this patient is: 1.6 - 2.5 P: Warfarin dose: 5 mg Today at 1600. Bridge Therapy: None Next INR due tomorrow. Pharmacy anticoagulation service will continue to follow. Atul Bejarano [facility], 02/02/21 [id number]
--- NOTE | 2021-02-02 10:00 | NUR ---
sitting up in recliner. left leg elevated and has been reinforced during the night . reinforced dressing is saturated with bloody drainage. original surgical dressing removed; glued with a gap on the lower distal end that is draining. folded 4x4's tape to create pressure and abd then medigrip applied. physical therapy to take it easy regarding exercising to help decrease bleeding. states feels better regarding the pressure on his leg. remains elevated and ice in place
[2021-02-02 11:25] VITALS: BP 118/75
[2021-02-02] MEDS ORDERED: ONDANSETRON ODT 4 MG TAB.RAPDIS. PO PRN (12:00)
[2021-02-02] MEDS ORDERED: ONDANSETRON PF 4 MG/2 ML VIAL. IVP PRN (12:00)
--- NOTE | 2021-02-02 12:00 | NUR ---
returning from therapy. he only did exercise with other leg and ambulated to bathroom. folded 4x4' s saturated and and bottom half of the abd. cleansed with chlor prep and new pressure drainage applied. legs elevated and ice applied
--- NOTE | 2021-02-02 15:30 | NUR ---
tolerated 2nd therapy fair. pressure dressing saturated. cleansed with chlor prep, Mastisol then steri strips applied to the gap on the end of the incision. folded 4x4 and new abd. medigrip placed. resting in bed with ice to incisional area. needs a nap states pain is better with less pressure.
[2021-02-02] MEDS ORDERED: BISACODYL 10 MG SUPP.RECT. PR PRN (16:00)
[2021-02-02] MEDS ORDERED: WARFARIN 5 MG TABLET. PO ONE (16:00)
[2021-02-02 18:39] VITALS: BP 108/68
[2021-02-02] MEDS: FINASTERIDE 5 MG TABLET. PO SCH (21:27)
[2021-02-02] MEDS: PANTOPRAZOLE 40 MG TABLET.DR. PO SCH (21:27)
--- NOTE | 2021-02-02 21:32 | PDOC ---
PROGRESS NOTES Date of Service DATE: 02/02/21 TIME: 21:28 Subjective Subjective Problems overnight: Getting up and around and knee feels good but had noted some bleeding with activity Objective Vital Signs Vital Signs Date Time Temp Pulse Resp B/P (MAP) Pulse Ox O2 Delivery O2 Flow Rate FiO2 02/02/21 18:39 98.3 88 18 108/68 (81) 97 Room Air 98.3 02/02/21 06:55 4.0 Physical Exam Bryant dressing was changed and reinforced with ABD pad. He does have a small area at the distal portion of the wound that appears to be clotted blood and was reinforced with Steri-Strips after a chlorhexidine prep. Otherwise distal neurovascular status intact he has good patellofemoral tracking and motion Labs Laboratory Tests Test 02/01/21 06:38 02/02/21 07:30 Prothrombin Time 13.4 SEC (11.7-14.0) 16.5 SEC (11.7-14.0) Prothromb Time International Ratio 1.0 (0.8-1.1) 1.3 (0.8-1.1) Activated Partial Thromboplast Time 32 SEC (24-38) Potassium Level 3.8 mmol/L (3.5-5.1) Hemoglobin 13.2 g/dL (13.0-17.5) Hematocrit 37.8 % (39.0-53.0) Mean Corpuscular Hemoglobin Concent 35 g/dL (31-37) Laboratory Tests Test 02/02/21 07:30 Hemoglobin 13.2 g/dL (13.0-17.5) Hematocrit 37.8 % (39.0-53.0) Mean Corpuscular Hemoglobin Concent 35 g/dL (31-37) Prothrombin Time 16.5 SEC (11.7-14.0) Prothromb Time International Ratio 1.3 (0.8-1.1) Imaging Postop x-rays show good placement and sizing of a total knee arthroplasty Assessment Assessment POD#1 total knee arthroplasty Plan Plan of Care Continue mobilize with physical therapy, Coumadin anticoagulation Continued observation appropriate for bleeding from distal wound Home health versus outpatient physical therapy on discharge depending on ongoing progress Justicifation of Admission Dx: Justifications for Admission: Justification of Admission Dx: N/A JOSE ANTONIO ALCARAZ MD Feb 02, 2021 21:32
[2021-02-02] MEDS ORDERED: CYCLOBENZAPRINE 10 MG TABLET. PO PRN (21:45)
[2021-02-03] MEDS: ACETAMINOPHEN 500 MG TABLET PO SCH ×3 (03:00→15:58)
[2021-02-03] MEDS: oxyCODONE IR 5 MG TABLET PO PRN ×2 (04:09→10:46)
[2021-02-03 04:37] LABS: HEMATOCRIT 35.1 % (39.0-53.0); HEMOGLOBIN 12.3 g/dL (13.0-17.5)
[2021-02-03 04:46] LABS: PROTHROMBIN TIME PATIENT 20.2 SEC (11.7-14.0)
[2021-02-03 05:00] VITALS: BP 108/72
--- NOTE | 2021-02-03 05:24 | NUR ---
Slept well, c/o pain when ambulating. Walks w/ a stiff knee and does the "may". Incontinent of urine, per usual routine. Surgical dressing D/I. No further drainage.
[2021-02-03] MEDS: GABAPENTIN 100 MG CAPSULE. PO SCH ×2 (06:26→15:57)
[2021-02-03] MEDS: IV NORMAL SALINE 1000ML BAG 1,000 ML IV SCH (07:30)
[2021-02-03] MEDS: DOCUSATE SODIUM 100 MG CAPSULE. PO SCH (08:14)
[2021-02-03] MEDS: MAGNESIUM OXIDE 400 MG TABLET PO SCH (08:14)
[2021-02-03] MEDS: FERROUS SULFATE 325 MG TABLET. PO SCH (08:14)
[2021-02-03] MEDS: TAMSULOSIN 0.4 MG CAP.ER.24H. PO SCH (08:15)
[2021-02-03] MEDS: MULTIVITAMIN with MINERAL TABLET. PO SCH (08:15)
[2021-02-03] MEDS: MELOXICAM 7.5 MG TABLET PO SCH (08:15)
[2021-02-03] MEDS: SENNOSIDES/DOCUSATE 8.6/50MG TABLET. PO SCH (08:15)
--- NOTE | 2021-02-03 09:22 | NUR ---
Pharmacy Warfarin Dosing Note S:Pharmacy consulted to assist with anticoagulation therapy started 02/01/21 with target INR: 1.6 - 2.5 O:MARCELO ZARCO is a 70 year old M with TKA LABS: Last INR: 1.8 Last HGB: 12.3 Last HCT: 35.1 Last PLT: 228 Last dose of 5 mg given on 02/02/21 at 1736 Vitamin K given: N Drug Interaction Changes: Same Interacting Drug Ongoing Drug Interactions: Meloxicam A:INR of 1.8 is within desired range. Target range for this patient is: 1.6 - 2.5 P: Warfarin dose: 3 mg Today prior to discharge Bridge Therapy: None Next INR due 02/07/21 outpatient Pharmacy anticoagulation service will continue to follow. LANCE NORIEGA RPH, 02/03/21 [id number]
[2021-02-03] MEDS: LISINOPRIL 20 MG TABLET PO SCH (12:57)
[2021-02-03] MEDS: hydroCHLOROthiazide 12.5 MG CAPSULE PO SCH (12:58)
[2021-02-03 13:23] VITALS: BP 143/83
[2021-02-03] MEDS ORDERED: WARFARIN 3 MG TABLET. PO ONE (14:00)
[2021-02-03] MEDS ORDERED: OXYC5CAP PO (17:18)
[2021-02-03] MEDS ORDERED: CYCL10TA19 PO (17:18)
--- NOTE | 2021-02-03 17:22 | DISCH ---
DISCHARGE INSTRUCTIONS Condition on Discharge Condition on Discharge: Stable Activity After Discharge Activity Instructions for Disc: Progressive ambulation Bathing Instructions: Shower-keep dressing dry, No Tub Bath until see Lifting Instructions after Dis: No heavy lifting, No pulling or pushing Exercise Instruction after Dis: Exercise per therapy, Progress as tolerated Driving Instructions after Dis: Do not drive Weight Bearing Status after Di: Full weight bearing Diet after Discharge Diet after Discharge: Regular Wound Incision Care Wound/Incision Care: Ice to area for comfort, Do not change dressing (Maintain naomy dressing, call if saturated, when suction machine stops at 1 week postoperative, cut tail of dressing and tape over to maintain seal, discard suction box) Checks after Discharge Checks after discharge: Check blood press - daily, Check your Temp as needed Community/Resources/Services Services at Discharge: Outpatient Therapy Follow-Up Follow Up With: Imtiaz Vincent on 02/15/21 at 0915 am [phone] Treatment/Equipment after DC Adaptive Equipment Issued: Walker Warfarin Follow-Up Warfarin Follow UP: Dosage and testing per [place] [facility] antico[facility] clinic JOSE ANTONIO ALCARAZ MD Feb 03, 2021 17:22
--- NOTE | 2021-02-03 18:00 | NUR ---
Discharge instructions given. Answered questions and concerns. Both patient and spouse verbalized understanding. Pt discharged home with Outpatient therapy. Escorted out by w/c.
--- NOTE | 2021-02-03 20:22 | DS ---
DATE OF DISCHARGE: 02/03/2021 PRINCIPAL DIAGNOSIS: Degenerative joint disease of the knee, status post total knee arthroplasty. DISPOSITION: Home with outpatient physical therapy. DISPOSITION MEDICATIONS: Include resumption of home medications aside from discontinuing ibuprofen and starting oxycodone 5 mg p.o. q.4 hours p.r.n. pain, Flexeril 10 mg p.o. t.i.d. p.r.n. muscle spasm and warfarin as directed by anticoagulation clinic. Activity is standard total knee protocol, progressive activity as tolerated. Maintain RUTH dressing, call if saturated and to report any redness or continued drainage. I did emphasize the need to frequently keep a pillow underneath his calf to stretch the hamstrings out to allow the knee to get out straight as the flexion contracture was corrected intraoperatively, but I did tell him that the tightness of the hamstrings would be a concern potentially limiting his extension motion. He is going to proceed with outpatient physical therapy as ordered. Follow up with ____ in 2 weeks. BRIEF DESCRIPTION OF HOSPITAL COURSE: The patient underwent uncomplicated total knee arthroplasty. Postoperatively, he was noted to have some drainage from the distal aspect of his wound. Dressings were changed to a pressure dressing and Steri-Strips applied on postoperative day #1, and he has had no further drainage and a RUTH dressing was reapplied. He has gone through physical therapy and really the major ongoing concern is just some tightness in his hamstrings and muscle spasm, for which he was started on Flexeril and kept on that post-discharge and was otherwise discharged in stable condition. VALERIE/ANNALEE/ADRIAN DR: Loi TID: [id number]
== END 2021-02-03 18:00 | disposition home or self-care (01) ==
LOC: SURG 05:58 → 4 SOUTHEST 09:50
PROVIDERS: ADMIT Orthopaedic Surgery; ATTEND Orthopaedic Surgery
DX: M17.12 Unilateral primary osteoarthritis, left knee (principal); M25.562 Pain in left knee; I10 Essential (primary) hypertension; K21.9 Gastro-esophageal reflux disease without esophagitis; Z86.718 Personal history of other venous thrombosis and embolism; Z79.899 Other long term (current) drug therapy; Z98.890 Other specified postprocedural states
CPT/HCPCS: 27447; 36415; 73560; 84132; 85014; 85018; 85610; 85730; 86850; 86900; 86901; 96365; 96366; 96375; 96376; 97116; 97150; 97162; 97166; 97530; 97535; A4213; A4930; A6223; A6253; A6258; A6402; A6450; A6550; C1713; C1755; C1776; G0378; G0379; J0690; J2250; J2270; J2405; J2704; J3010; J3370; A4222; J0171; J1885; J2795